=== PATIENT | female | born 1945 | race Caucasian/White ===

== ENCOUNTER → 2023-09-29 15:22 | Outpatient (REF) | payer MEDICARE, BC, SELFPAY ==
[2023-09-29 17:20] LABS: Urine Albumin Negative (Neg - Trace); Urine Bilirubin Negative (Negative); Urine Character Slightly Cloudy (Clear); Urine Color Straw; Urine Glucose Negative (Negative); Urine Ketone Negative (Negative); Urine Leukocyte 2+ (Negative); Urine Nitrite Negative (Negative); Urine Occult Blood Negative (Negative); Urine Specific Gravity 1.005 (<1.030); Urine Urobilinogen Negative (Neg - 1+)
[2023-09-29 17:28] LABS: Urine Red Blood Cell 0-2 /HPF (0-2); Urine Squamous Cell 0-2 /LPF (Few)
[2023-09-29 17:29] LABS: Urine Bacteria Moderate (Negative); Urine White Cell 50-60 /HPF (0-5)
== END ==
LOC: OLABLV 15:22
PROVIDERS: ATTENDING PHYSICIAN Nurse Practitioner Family
DX: N39.0 Urinary tract infection, site not specified (principal)
CPT/HCPCS: 81003; 81015; 87086; 87088; 87186

== ENCOUNTER → 2023-11-22 10:15 | Outpatient (REF) | payer MEDICARE, BC, SELFPAY ==
[2023-11-22 11:14] LABS: % Basophils 0.5 % (0-2); % Eosinophils 5.4 % (0-6); % Immature Granulocytes 0.7 % (0-0.5); % Lymphocytes 23.5 % (20.5-51.1); % Neutrophils 61.9 % (42.2-75.2); Absolute Eosinophils 0.5 10^3/uL (0-0.7); Absolute Immature Granulocytes 0.1 10^3/uL (0-0.05); Absolute Monocytes 0.7 10^3/uL (0.1-0.6); Absolute Neutrophils 5.3 10^3/uL (1.4-6.5); Hematocrit 36.1 % (37.0-47.0); Hemoglobin 11.7 g/dL (12.0-16.0); Mean Corp Hgb Conc. 32.4 g/dL (33.0-37.0); Mean Corpuscular Volume 92.6 fL (81.0-99.0); Mean Platelet Volume 10.5 fL (7.4-10.4); Nucleated Red Blood Cells % 0 %; Platelet Count 240 10^3/uL (130-400); Red Cell Dist. Width 13.5 % (11.5-14.5); White Blood Cell Count 8.5 10^3/uL (4.8-10.8)
[2023-11-22 11:27] LABS: ALT (SGPT) 12 U/L (0-35); AST (SGOT) 17 U/L (14-36); Albumin 3.8 g/dl (3.5-5.0); Alkaline Phosphatase 76 U/L (38-126); Blood Urea Nitrogen 21 mg/dl (7-17); Calcium 9.3 mg/dl (8.4-10.2); Carbon Dioxide 25 mmol/L (22-30); Chloride 102 mmol/L (98-107); Glucose 104 mg/dl (70-99); HDL Cholesterol 56 mg/dl; Iron 71 ug/dl (37-170); LDL Cholesterol, Calculated 44 mg/dl; Potassium 3.9 mmol/L (3.5-5.1); Sodium 137 mmol/L (135-145); Total Bilirubin 0.5 mg/dl (0.2-1.3); Total Cholesterol 115 mg/dl (50-199); Total Protein 6.7 g/dl (6.3-8.2); Triglyceride 75 mg/dl (10-149); Very Low Density Lipoprotein 15 mg/dl (0-30); eGFR > 60.00
[2023-11-22 11:36] LABS: Percent Saturation 25 % (20-50); Total Iron Binding Capacity 279 ug/dl (265-497)
[2023-11-22 11:57] LABS: TSH Reflex To Free T4 1.98 uIU/ml (0.47-4.68)
[2023-11-22 12:12] LABS: Glycohemoglobin (HgbA1c) 6.4 % (4.0-5.6)
== END ==
LOC: OLABLV 10:15
PROVIDERS: ATTENDING PHYSICIAN Nurse Practitioner Family
DX: I50.32 Chronic diastolic (congestive) heart failure (principal); F03.90 Unspecified dementia, unspecified severity, without behavioral disturbance, psychotic disturbance, mood disturbance, and anxiety; E11.65 Type 2 diabetes mellitus with hyperglycemia; I10 Essential (primary) hypertension; E78.2 Mixed hyperlipidemia; I25.10 Atherosclerotic heart disease of native coronary artery without angina pectoris; I48.21 Permanent atrial fibrillation; I49.5 Sick sinus syndrome; Z95.0 Presence of cardiac pacemaker; K21.9 Gastro-esophageal reflux disease without esophagitis; Z13.89 Encounter for screening for other disorder
CPT/HCPCS: 36415; 80053; 80061; 82728; 83036; 83540; 83550; 84443; 85025

== ENCOUNTER → 2023-12-14 19:45 | Outpatient (REF) | payer MEDICARE, BC, SELFPAY ==
[2023-12-15 13:45] LABS: Urine Albumin Negative (Neg - Trace); Urine Bilirubin Negative (Negative); Urine Character Very Cloudy (Clear); Urine Color Yellow; Urine Glucose Negative (Negative); Urine Ketone Negative (Negative); Urine Leukocyte 2+ (Negative); Urine Nitrite Positive (Negative); Urine Occult Blood Negative (Negative); Urine Urobilinogen Negative (Neg - 1+)
[2023-12-15 13:55] LABS: Urine Bacteria Moderate (Negative); Urine Calcium Oxalate Crystals Present; Urine White Cell >100 /HPF (0-5)
[2023-12-15 13:56] LABS: Urine Red Blood Cell None Seen /HPF (0-2)
== END ==
LOC: OLABLV 19:45
PROVIDERS: ATTENDING PHYSICIAN Nurse Practitioner Family
DX: N39.0 Urinary tract infection, site not specified (principal)
CPT/HCPCS: 81003; 81015; 87086

== ENCOUNTER → 2024-02-07 11:32 | Outpatient (REF) | payer MEDICARE, BC, SELFPAY ==
[2024-02-07 13:23] LABS: Hematocrit 35.5 % (37.0-47.0); Hemoglobin 11.4 g/dL (12.0-16.0); Mean Corp Hgb Conc. 32.1 g/dL (33.0-37.0); Mean Corpuscular Hgb 28.9 pg (27.0-31.0); Mean Corpuscular Volume 89.9 fL (81.0-99.0); Mean Platelet Volume 10.7 fL (7.4-10.4); Platelet Count 280 10^3/uL (130-400); Red Blood Cell Count 3.95 10^6/uL (4.20-5.40); Red Cell Dist. Width 14.2 % (11.5-14.5); White Blood Cell Count 9.5 10^3/uL (4.8-10.8)
[2024-02-07 13:49] LABS: ALT (SGPT) 12 U/L (0-35); AST (SGOT) 17 U/L (14-36); Albumin 4.1 g/dl (3.5-5.0); Alkaline Phosphatase 91 U/L (38-126); Blood Urea Nitrogen 19 mg/dl (7-17); Calcium 9.2 mg/dl (8.4-10.2); Carbon Dioxide 23 mmol/L (22-30); Chloride 103 mmol/L (98-107); Glucose 129 mg/dl (70-99); Potassium 4.1 mmol/L (3.5-5.1); Sodium 138 mmol/L (135-145); Total Bilirubin 0.7 mg/dl (0.2-1.3); Total Protein 7.1 g/dl (6.3-8.2); eGFR > 60.00
[2024-02-07 13:57] LABS: NT-proBNP 3280 pg/ml
== END ==
LOC: OLABLV 11:32
PROVIDERS: ATTENDING PHYSICIAN Nurse Practitioner; OTHER PHYSICIAN Nurse Practitioner Family
DX: R60.0 Localized edema (principal); I48.21 Permanent atrial fibrillation; I34.0 Nonrheumatic mitral (valve) insufficiency; I50.32 Chronic diastolic (congestive) heart failure
CPT/HCPCS: 36415; 80053; 83880; 85027

== ENCOUNTER → 2024-02-26 12:56 | Outpatient (REF) | payer MEDICARE, BC, SELFPAY | LOC: HWRCS 12:56 | PROVIDERS: ATTENDING PHYSICIAN Nurse Practitioner; FAMILY PHYSICIAN Family Medicine | DX: R60.0 Localized edema (principal); I48.21 Permanent atrial fibrillation; I34.0 Nonrheumatic mitral (valve) insufficiency; I50.32 Chronic diastolic (congestive) heart failure | CPT/HCPCS: 93306 ==

== ENCOUNTER 2024-06-02 22:19 | Inpatient (IN) | payer MEDICARE, BC, SELFPAY ==
[2024-06-02 18:10] VITALS: BP 208/113
[2024-06-02 18:11] VITALS: BP 208/113
[2024-06-02 18:17] VITALS: BP 181/107; BMI 29.0
--- NOTE | 2024-06-02 18:38 | ED.GENMED ---
History of Present Illness
General
Chief Complaint: Fall
Source: patient and other (Nursing)
Exam Limitations: dementia (Slight. Able to answer some questions)
Time Seen by Provider: 06/02/24 18:02
History of Present Illness
History of Present Illness:
This is a 79 year old female that comes in with c/o fall. States that she was walking down the [place] and tripped. Told that she was using her walker and that this was a witnessed fall. Staes that she did not hit her head or have any LOC. States that
she has left hip thigh pain.States that she is nauseated, has a headache and dizziness. Denies any fever, chills, chest pain, SOB, abd pain, vomiting, diarrhea, urinary burning.
Past History
Past History
ED Past Medical History: Arrthythmia ( SVT, Atrial fib, ), CVA, GERD, HTN, Hypercholesterolemia, NIDDM, Psychiatric (Depression, anxiety) and Other ( Lyme's disease, insomnia, Colitis, Vertigo, Intractable vomiting, Headache, Sleep apnea, UTI, Iron
deficiency anemia, Slight Dementia, Endometriosis, )
ED Past Surgical History: Appendectomy, Cardiac (Pacemaker, Left carotid endarterectomy), Gynecological (Hysterectomy) and Tonsilectomy
Social History
Tobacco: Former smoker
Alcohol: None
Personal: ( in [employer])
Living: assisted ([facility])
Family History
Family History: CAD
Review of Systems
Review of Systems
All Other Systems: ROS reviewed and negative except as documented in HPI and ROS
Constitutional: Reports no symptoms; Denies fever or chills
EENT: Reports no symptoms
Respiratory: Reports no symptoms; Denies cough or trouble breathing
Cardiac: Reports no symptoms; Denies chest pain
ABD/GI: Reports nausea; Denies abdominal pain, vomiting or diarrhea
: Reports no symptoms; Denies dysuria, frequency or urgency
Musculoskeletal: Reports joint pain (Left hip)
Skin: Reports no symptoms
Neurological: Reports dizzy and headache
Psychiatric: Reports no symptoms
Phy Exam
General Physical Exam
General Presentation: no apparent distress
General age: appears stated age
General Skin: warm and dry
General Habitus: elderly
General Mental: usual mental status
General Hydration: dry mucous membranes
ENT Exam
ENT Exam: TM's normal, pharynx normal and neck supple
Eye Exam
Eye Exam: EOMI
Cardiovascular Exam
Cardiovascular Exam: normal peripheral pulses, irregularly irregular and pacemaker (Occasional spikes noted)
Pulmonary Exam
Pulmonary Exam: lungs clear, no respiratory distress, no rales, chest non tender, no crackles, no rhonchi, no wheezing and no cough
Gastrointestinal Exam
Gastrointestinal Exam: normal bowel sounds, non tender, soft, no organomegaly, no pulsatile mass and non distended
Musculoskeletal Exam
Musculoskeletal Exam: edema (Bilateral lower legs +2 pitting) and other (Negative knee discomfort with palpation, Negative for discomfort with right knee flexion, Discomfort with left knee flexion in the left hip area. Left hip discomfort with
palpation)
Skin Exam
Skin Exam: normal color, warm/dry, no rash and no petechia
Psychiatric Exam
Psychiatric Exam: normal mood/affect
Course
Orders/Labs/Results
Orders:
Orders
06/02/24 18:37
Hip, Left 2-3 Views [CR Hip - LT w/wo Pel 2-3 Vw*] Urgent
Comment:
Reason For Exam: Fall, pain
Include a pelvis x-ray?: Yes
06/02/24 18:38
Morphine Sulfate 2 mg IV NOW STA
06/02/24 18:40
CT Head W/o Iv Contrast Urgent
Comment:
Reason For Exam: Fall on eliquis
Urinalysis Reflex To Culture Urgent
06/02/24 18:43
Complete Blood Count/With Diff Urgent
Comprehensive Metabolic Panel Urgent
06/02/24 18:47
Electrocardiogram (*1) Urgent
Reason for Study: Vertigo / Dizzy
EKG- Treatment ONCE
Abnormal Lab Results
06/02/24
18:43
RBC 4.15 L 10^6/uL
(4.20-5.40)
Hct 36.1 L %
(37.0-47.0)
Abs Immat Gran (auto) 0.1 H 10^3/uL
(0-0.05)
Immature Gran % 1.7 H %
(0-0.5)
BUN 25 H mg/dl
(7-17)
Creatinine 1.1 H mg/dL
(0.6-1.0)
Glucose 159 H mg/dl
(70-99)
06/02/24 18:43
06/02/24 18:43
Dehydration. hyperglycemia.
Vital Signs
Initial and Last Documented VS:
Initial Vital Signs
BP
208/113
06/02/24 18:10
Last Documented Vital Signs
Temp Pulse Resp BP Pulse Ox
98.7 F 92 21 208/113 97
06/02/24 18:11 06/02/24 18:15 06/02/24 18:15 06/02/24 18:11 06/02/24 18:15
MDM/Problems Addressed
Differential Diagnosis Includes:
Left hip/Pelvic fracture, Contusion
MDM/Problems Addressed:
This is a 79 year old female that comes in with c/o fall. States that she went down hard after she tripped. States that she has left hip pain.
Will get labs and X-ray. will medicate for pain.
back into see patient. Explained that she has a fracture of the left hip. Will admit patient. Attempted to call patient Daughter and left a message for her to call the ER.
Chronic conditions affecting care:
Dementia
Chronic conditions affecting care: DM and Arrhythmia (Atrial fib)
Acute Exacerbation and/or Progression of Chronic Illness:
NA
*Radiology
Radiology exam reviewed: preliminary read by ED provider (Left hip- Left hip fracture) and radiology read reviewed (CT head-No acute intracranial abnormality noted. Stable chronic findings as detailed above. Left hip-minimal displaced left
intertrochanteric femoral fracture. )
*Pulse Oximetry
Patient hypoxic: no
*EKG
Interpreted by ED Provider?: Yes
Heart Rate: 97
Rate: normal
Rhythm: a-fib
[place]: normal axis
QRS Pattern: normal QRS
Ischemia: no ischemia
*[employer] Interpretation
Rate: tachycardiac
Heart Rate: 100
Rhythm: a-fib (with occasional paced beats)
*Critical Care Note
Total Time (30-74mins, 75-104mins- exclusive of procedures): Not Applicable
ED Attending Note
-
Portions of this chart may have been created with voice recognition software.� Occasional wrong word or��sound alike� substitutions may have occurred due to the inherent limitations of voice recognition software.
Discharge Plan
Departure
Patient Disposition: Admit
Date of Disposition: 06/02/24
Time of Disposition: 20:28
Admit to: Med/Surg
Presentation/result/management discussed w/ accepting MD/DO: Hospitalist
Patient with high blood pressure during this ER visit?: Yes
Condition: Good
Covid-19: Not Applicable
Discharge Problem:
Closed intertrochanteric fracture of left femur
Prescriptions:
No Action
atorvastatin 20 MG tablet
20 mg PO HS
pantoprazole 40 MG tablet,delayed release (DR/EC)
40 mg PO DAILY
Januvia 100 MG tablet
100 mg PO DAILY
methenamine hippurate 1 GRAM tablet
1 g PO BID
ferrous sulfate [iron] 325 MG tablet
325 mg PO DAILY
lisinopril 10 MG tablet
10 mg PO BID
acetaminophen [Tylenol] 325 MG capsule
650 mg PO Q4H PRN (Reason: mild pain)
metoprolol succinate 100 mg tablet extended release 24 hr
100 mg PO HS
metformin 1,000 mg Tablet
1,000 mg PO BID
calcium polycarbophil [Fiber (calcium polycarbophil)] 625 mg Tablet
625 mg PO DAILY
alum-mag hydroxide-simeth 200-200-20 mg/5 mL Suspension
30 ml PO BID PRN (Reason: heartburn)
memantine 10 mg Tablet
10 mg PO BID
Eliquis 5 MG tablet
5 mg PO BID
Rx Instructions:
Resume on Apr 12
diltiazem HCl 300 mg Capsule,Extended Release 24hr
300 mg PO DAILY 30 Days Qty: 30 0RF
furosemide 20 mg Tablet
20 mg PO DAILY Qty: 30 0RF
nystatin 100,000 unit/gram powder
1 applic TOPICAL BID
Referrals:
Vivian Martinez CRNP [Family Provider] -
Interventions
Interventions:
*Risk Screen - Suicide Last Done: 06/02/24 18:14
*General Assessment Last Done: 06/02/24 18:13
*Neglect/Abuse Screening Last Done: 06/02/24 18:14
*ED COVID-19 Vaccine History Last Done: 06/02/24 18:13
ED-Musculoskeletal Assessment Last Done: 06/02/24 18:15
ED- Neurological Assessment Last Done: 06/02/24 18:14
ED-Skin Assessment Last Done: 06/02/24 18:16
Discharge Date and Time
Print Language: TRISTANIAN
[2024-06-02 18:49] LABS: % Basophils 0.2 % (0-2); % Eosinophils 3.2 % (0-6); % Immature Granulocytes 1.7 % (0-0.5); % Lymphocytes 26.6 % (20.5-51.1); % Monocytes 7.6 % (1.7-9.3); % Neutrophils 60.7 % (42.2-75.2); Absolute Eosinophils 0.3 10^3/uL (0-0.7); Absolute Immature Granulocytes 0.1 10^3/uL (0-0.05); Absolute Lymphocytes 2.2 10^3/uL (1.2-3.4); Absolute Monocytes 0.6 10^3/uL (0.1-0.6); Absolute Neutrophils 5.1 10^3/uL (1.4-6.5); Hematocrit 36.1 % (37.0-47.0); Mean Corp Hgb Conc. 33.2 g/dL (33.0-37.0); Mean Corpuscular Hgb 28.9 pg (27.0-31.0); Mean Platelet Volume 10.4 fL (7.4-10.4); Nucleated Red Blood Cells % 0 %; Platelet Count 247 10^3/uL (130-400); Red Blood Cell Count 4.15 10^6/uL (4.20-5.40); Red Cell Dist. Width 13.9 % (11.5-14.5); White Blood Cell Count 8.4 10^3/uL (4.8-10.8)
[2024-06-02 19:04] LABS: ALT (SGPT) 20 U/L (0-35); AST (SGOT) 21 U/L (14-36); Albumin 4.5 g/dl (3.5-5.0); Alkaline Phosphatase 89 U/L (38-126); Blood Urea Nitrogen 25 mg/dl (7-17); Calcium 9.2 mg/dl (8.4-10.2); Carbon Dioxide 26 mmol/L (22-30); Chloride 98 mmol/L (98-107); Estimated Creatinine Clearance 41 ml/min; Glucose 159 mg/dl (70-99); Potassium 4.4 mmol/L (3.5-5.1); Sodium 139 mmol/L (135-145); Total Bilirubin 0.5 mg/dl (0.2-1.3); Total Protein 7.5 g/dl (6.3-8.2)
[2024-06-02] MEDS: MORPHINE SULFATE 2 MG IV (19:06)
[2024-06-02 20:00] VITALS: BP 168/98
[2024-06-02] MEDS: MORPHINE SULFATE 4 MG IV (20:31)
[2024-06-02 20:54] LABS: Urine Albumin Negative (Neg - Trace); Urine Bilirubin Negative (Negative); Urine Character Clear (Clear); Urine Color Straw; Urine Glucose Negative (Negative); Urine Ketone Negative (Negative); Urine Leukocyte Trace (Negative); Urine Nitrite Negative (Negative); Urine Occult Blood Negative (Negative); Urine Urobilinogen Negative (Neg - 1+); Urine pH 6.5 (5.0-9.0)
[2024-06-02 21:02] LABS: Urine Bacteria Moderate (Negative); Urine Red Blood Cell None Seen /HPF (0-2)
[2024-06-02 21:03] LABS: Urine Amorphous Seen
--- NOTE | 2024-06-02 21:03 | HPS.HSE ---
Family Physician
-
Family Physician: CEE Singer
Chief Complaint
-
Mechanical fall, left hip pain
History of Present Illness
The patient is an 79 year old woman with PMH significant for mild dementia (moved to assisted living due to difficulty remembering medications), former smoker, SVT, atrial fibrillation on Eliquis (last dose this morning at 848am), CVA, GERD, HTN,
HLD, NIDDM, depression, anxiety, Lyme's disease, insomnia, colitis, vertigo, sleep apnea, iron deficiency anemia, who presents to ED from assisted living at [facility]) due to witnessed fall while walking down the hallway using her walker
and tripped. No LOC, did not hit her head, and is complaining of left hip pain, nausea, headache, and dizziness. No CP, no SOB, no LOC, no vomiting, no dysuria.
Hip X-ray shows an intertrochanteric left hip fracture minimally displaced.
Ortho consulted from ED
ED txt: IV Morphine x 2
Labs: Creat 1.1, BUN 25, Hgb 12.0
Medical History
Past Medical History
Past Medical History: Reports Arrhythmia (A.fib on Eliquis, SVT, SSS), GERD, HTN, Hypercholesterolemia, NIDDM, Psychiatric (Depression/anxiety) and Other (Lyme's disease, insomnia, Colitis, Vertigo, Intractable vomiting, Headache, Sleep apnea, UTI,
Iron deficiency anemia, Slight Dementia, Endometriosis)
Past Surgical History: Reports Appendectomy, Cardiac (Pacemaker, left carotid endarterectomy), Gynocological and Tonsilectomy
Social History
Tobacco: Former Smoker
Alcohol: None
Drug: None
Living: [facility]
Family History
Family History: Not pertinent
Allergies / Home Medications
Allergies reflects when Allergies were last updated in [employer].
Home Medications with original date entered in [employer]
Allergy/Medication List:
Allergies
Allergy/AdvReac Type Severity Reaction Status Date / Time
amoxicillin Allergy Unknown Unknown Verified 06/02/24 18:11
amoxicillin trihydrate Allergy Rash/Swollen Verified 06/02/24 18:11
[From Augmentin] lips
potassium clavulanate Allergy Rash/swollen Verified 06/02/24 18:11
[From Augmentin] lips
Home Medications
atorvastatin 20 mg tablet 20 mg PO HS High cholesterol 07/29/15
acetaminophen 325 mg capsule (Tylenol) 650 mg PO Q4H PRN mild pain 01/11/21
ferrous sulfate 325 mg (65 mg iron) tablet (iron) 325 mg PO DAILY Supplement 01/11/21
lisinopril 10 mg tablet 10 mg PO BID Blood pressure 01/11/21
methenamine hippurate 1 gram tablet 1 g PO BID Urinary issue 01/11/21
pantoprazole 40 mg tablet,delayed release 40 mg PO DAILY Gastrointestinal issue 01/11/21
sitagliptin phosphate 100 mg tablet (Januvia) 100 mg PO DAILY Diabetes 01/11/21
aluminum-mag hydroxide-simethicone 200 mg-200 mg-20 mg/5 mL oral susp 30 ml PO BID PRN heartburn 10/08/22
apixaban 5 mg tablet (Eliquis) 5 mg PO BID Blood clot prevention/tx 10/08/22
calcium polycarbophil 625 mg tablet (Fiber (calcium polycarbophil)) 625 mg PO DAILY Gastrointestinal issue 10/08/22
memantine 10 mg tablet 10 mg PO BID Mental Health/Anxiety 10/08/22
metformin 1,000 mg tablet 1,000 mg PO BID Diabetes 10/08/22
metoprolol succinate 100 mg tablet,extended release 24 hr 100 mg PO HS Blood clot prevention/tx 10/08/22
diltiazem HCl 300 mg capsule,extended release 24 hr 300 mg PO DAILY 30 days #30 caps 10/11/22
furosemide 20 mg tablet 20 mg PO DAILY #30 tabs 12/13/22
nystatin 100,000 unit/gram topical powder 1 applic topical BID 06/19/23
Review of Systems
-
A 12 point ROS was completed and negative except as noted: Yes
Physical Exam
Vital Signs
Vital Signs
Temp Pulse Resp BP Pulse Ox
98.7 F 109 22 168/98 94
06/02/24 18:11 06/02/24 20:15 06/02/24 20:15 06/02/24 20:00 06/02/24 20:15
Physical Exam
General: Well Developed, Well Nourished, No Apparent Distress, Comfortable and Conversant
HEENT: NormoCephalic, Anicteric and Moist mucous membranes
Respiratory: Clear
Cardiac: S1/S2 and Irregular Rhythm
GI: Soft, Non Tender, Non Distended and Normal Bowel Sounds
Musculoskeletal: No Clubbing, No Cyanosis, Edema, Left Lower Extremity, Edema, Right Lower Extremity and Other (externally rotated and shortened LLE)
Skin: Warm and Dry
Neuro: Awake, Alert and Oriented (To person, year, not to place)
Psych: Calm
Laboratory Results
-
06/02/24 18:43
06/02/24 18:43
Laboratory Results
Total Bilirubin 0.5 mg/dl (0.2-1.3) 06/02/24 18:43
AST 21 U/L (14-36) 06/02/24 18:43
ALT 20 U/L (0-35) 06/02/24 18:43
Alkaline Phosphatase 89 U/L (38-126) 06/02/24 18:43
Data Reviewed
-
Medical Tests (Nuc Med, Echo, EKG etc): Report Reviewed by me (EF 65-70%, mild concentric left ventricular hypertrophy)
Lab Data: Labs Reviewed by me
Impression/Plan
-
IMPRESSION:
The patient is an 79 year old woman with PMH significant for mild dementia (moved to assisted living due to difficulty remembering medications), former smoker, SVT, atrial fibrillation on Eliquis (last dose this morning at 848am), CVA, GERD, HTN,
HLD, NIDDM, depression, anxiety, Lyme's disease, insomnia, colitis, vertigo, sleep apnea, iron deficiency anemia, who presents to ED from assisted living at [facility] due to witnessed fall while walking down the hallway using her walker
and tripped. No LOC, did not hit her head, and is complaining of left hip pain, nausea, headache, and dizziness. No CP, no SOB, no LOC, no vomiting, no dysuria.
Hip X-ray shows an intertrochanteric left hip fracture minimally displaced.
Ortho consulted from ED
ED txt: IV Morphine x 2
Labs: Creat 1.1, BUN 25, Hgb 12.0
creatinine 1.1 (from 0.8)
#Minimally displaced left intertrochanteric femoral fracture
-Ortho cx appreciated, surgery discussed for Monday due to need for Eliquis wash-out, plan likely gamma nail
-NPO p mn Monday
-pain management, neurovascular checks q4h, bowel regimen, bladder scan prn
#OCTAVIO, creat 1.1 up from 0.8, likely mild dehydration
-gentle IVF tonight, repeat labs in am, hold home Lasix for now
#A.fib on Eliquis, last dose this morning
-hold Eliquis, monitor on tele, continue BB
#HTN, continue home meds
-Metoprolol XL BID
-Lisinopril BID
#Peripheral edema
-hold daily oral Lasix for now s/p IVF, and may restart pending clinical status
#Mild Dementia
-continue Memantine
#PVD, carotid artery disease
- Left carotid endarterectomy
#NIDDM
-Cont Januvia, Glimepiride (cont for now, hold while NPO)
-SSI
-Diabetic diet, NPO p midnight Monday
#HLD
-cont statin
DVT proph- PCDs for now, hold Eliquis for surgery
Full Code as discussed with patient's daughter Renetta
Patient's other daughter, Twyla Fox, is out of the country (she works here as a nurse in the cancer center).
--- NOTE | 2024-06-02 23:00 | PTCARENOTE ---
Pt arrived via stretcher from ED at 2300. Pt was assist X3 assembler for puller over machine. Pt AAOX1. Pt BP elevated. (see MAR). Other VSS. head to toe assessment complete. oriented pt to room and call ware. bed in lowest position and locked. bed alarm in place.
[2024-06-02] MEDS: COLACE 100 MG PO (23:32)
[2024-06-02] MEDS: LIPITOR 20 MG PO (23:33)
[2024-06-02] MEDS: SENOKOT PO (23:33)
[2024-06-02] MEDS: ZESTRIL 10 MG PO (23:33)
[2024-06-02] MEDS: TOPROL XL 100 MG PO (23:33)
[2024-06-02] MEDS: NAMENDA 10 MG PO (23:33)
[2024-06-02 23:40] VITALS: BP 201/114; BMI 27.7
[2024-06-02 23:46] VITALS: BMI 27.7
[2024-06-03] VITALS (7 sets, daily range): BP systolic 110–141; BP diastolic 53–82
[2024-06-03] MEDS: TYLENOL 650 MG PO ×3 (00:28→21:16)
[2024-06-03 00:35] LABS: Glucose - Point of Care 273 mg/dl (70-99)
[2024-06-03] MEDS: TYLENOL PO ×3 (04:20→17:41)
[2024-06-03] MEDS: MORPHINE SULFATE 2 MG IV ×3 (05:21→22:36)
[2024-06-03] MEDS: FLOMAX 0.4 MG PO (05:43)
--- NOTE | 2024-06-03 07:29 | CON.ORTHO ---
Addendum entered and electronically signed by Carmelita Liu PA-C 06/04/24 13:42:
Performing provider Dr. Maher, not Dr. Mon
Original Note:
Consultation
-
Date/Time Consultation Requested: 06/02/24, unknown time
Date/Time Consultation Performed: 06/03/24 @7:15am
Requesting Provider: Jacques
Performing Provider: Carmelita Liu PA-C, Viola Mon DO
Reason for Consultation: left hip fracture
Consultation - Orthopedics
History
HPI: 79yo female admitted to [facility] following a fall. She was ambulating with a walker when she tripped and fell, landing on the left side. She reports that she was unable to get up. She reports pain in the left hip and thigh. Xrays
performed in the ED reveal a left hip fracture. Orthopedics has been consulted for further management. She is on Eliquis with her last dose being 06/02/24 at 8:48am. Currently, she is resting comfortably in bed. She does report pain with any movement
of the left leg
PAST MEDICAL HISTORY: Afib, SVT, CVA, GERD, HTN, Hypercholesterolemia, NIDDM, depression, anxiety, Lyme, insomnia, colitis, vertigo, sleep apnea, iron deficiency anemia, endometriosis, mild dementia
PAST SURGICAL HISTORY: Appendectomy, left carotid endarterectomy, hysterectomy, tonsillectomy
SOCIAL HISTORY: Lives at [facility] assisted [facility], ambulates with a walker at baseline, former smoker, denies alcohol
FAMILY HISTORY: Noncontributory
REVIEW OF SYSTEMS: 12 point review of systems obtained and negative except those mentioned in the HPI
Allergies / Home Medications
Allergy/AdvReac Type Severity Reaction Status Date / Time
amoxicillin Allergy Unknown Unknown Verified 06/02/24 18:11
amoxicillin trihydrate Allergy Rash/Swollen Verified 06/02/24 18:11
[From Augmentin] lips
potassium clavulanate Allergy Rash/swollen Verified 11/03/24 18:11
[From Augmentin] lips
�Medication �Instructions �Recorded
atorvastatin 20 mg tablet 20 mg PO HS High cholesterol 07/29/15
acetaminophen 325 mg capsule 650 mg PO Q4H PRN mild pain 01/11/21
(Tylenol)
ferrous sulfate 325 mg (65 mg 325 mg PO DAILY Supplement 01/11/21
iron) tablet (iron)
lisinopril 10 mg tablet 10 mg PO BID Blood pressure 01/11/21
methenamine hippurate 1 gram tablet 1 g PO BID Urinary issue 01/11/21
pantoprazole 40 mg tablet,delayed 40 mg PO DAILY Gastrointestinal 01/11/21
release issue
sitagliptin phosphate 100 mg 100 mg PO DAILY Diabetes 01/11/21
tablet (Januvia)
aluminum-mag hydroxide-simethicone 30 ml PO BID PRN heartburn 10/08/22
200 mg-200 mg-20 mg/5 mL oral susp
apixaban 5 mg tablet (Eliquis) 5 mg PO BID Blood clot 10/08/22
prevention/tx
calcium polycarbophil 625 mg 625 mg PO DAILY Gastrointestinal 10/08/22
tablet (Fiber (calcium issue
polycarbophil))
memantine 10 mg tablet 10 mg PO BID Mental Health/Anxiety 10/08/22
metformin 1,000 mg tablet 1,000 mg PO BID Diabetes 10/08/22
metoprolol succinate 100 mg 100 mg PO HS Blood clot 10/08/22
tablet,extended release 24 hr prevention/tx
diltiazem HCl 300 mg 300 mg PO DAILY 30 days #30 caps 10/11/22
capsule,extended release 24 hr
furosemide 20 mg tablet 20 mg PO DAILY #30 tabs 12/13/22
nystatin 100,000 unit/gram topical 1 applic topical BID 06/19/23
powder
Vital Signs / Lab Results
Temp Pulse Resp BP Pulse Ox
98.1 F 91 19 141/82 97
06/03/24 03:25 06/03/24 03:25 06/03/24 03:25 06/03/24 03:25 06/03/24 03:25
06/02/24 18:43
06/02/24 18:43
RADIOGRAPHIC FINDINGS:
Xrays left hip show a minimally displaced left intertrochanteric fracture
PHYSICAL EXAM:
General: no acute distress. able to tell me location and year
HEENT: NCAT, sclera anicteric, normal hearing
Heart: No JVD
Lungs: Normal work of breathing on room air
MSK: Directed exam of left lower extremity reveals leg shortened and externally rotated. +TTP about the lateral thigh. Compartments soft and compressible. +Logroll. Calf soft and nontender. Able to plantarflex/dorsiflex the ankle. NVI distally
Assessment / Plan
ASSESSMENT: 79yo female with left intertrochanteric hip fracture
PLAN: Unfortunately, Ms. Rubio has sustained a left hip fracture. I did discussed with daughter, Selene, via telephone. Recommend operative fixation. The risks, benefits, potential complications were reviewed. Will plan for left hip gamma nail
under the direction of Dr. Mon on 06/05/24 to allow for Eliquis washout. Surgical and blood consents obtained and placed on chart. Daughter states that patient does sign her own consents however she did seem slightly confused this
morning and therefore the daughter also provided consent for surgery. Ancef electronic resources librarian to OR. Patient will need to be NPO after midnight on Monday night. She is to remain on bedrest for now. Continue with pain medications as needed. Medical
optimization. Continue to hold Eliquis. Orthopedics will continue to follow along.
[2024-06-03] MEDS: TOPROL XL 100 MG PO ×2 (07:38→21:16)
[2024-06-03] MEDS: NAMENDA 10 MG PO ×2 (07:39→21:16)
[2024-06-03] MEDS: SENOKOT 17.2 MG PO ×2 (07:39→21:17)
[2024-06-03] MEDS: PROTONIX 40 MG PO (07:39)
[2024-06-03] MEDS: AMARYL 2 MG PO (07:39)
[2024-06-03] MEDS: ZESTRIL 10 MG PO ×2 (07:39→21:17)
[2024-06-03] MEDS: COLACE 100 MG PO ×2 (07:40→21:17)
[2024-06-03] MEDS: DESENEX/MITRAZOL/ZEASORB 1 APPLIC TOPICAL ×2 (07:49→21:17)
[2024-06-03 07:56] LABS: Glucose - Point of Care 175 mg/dl (70-99)
[2024-06-03] MEDS: NOVOLOG FLEXPEN-LOW RESISTANCE 1 UNITS SC ×2 (08:04→12:41)
[2024-06-03] MEDS: ROXICODONE 5 MG PO (10:27)
--- NOTE | 2024-06-03 11:26 | W.PN.HOSP.TC ---
Today's Communication/Plan
-
see outlined plan
await todays labs
Assessment / Plan
Assessment / Plan
Assessment:
Traumatic Minimally displaced left intertrochanteric femoral fracture
- Ortho consulted, NPO p MN for OR planned Monday after Eliquis Washout
- continue pain control
- EKG with rate controlled A. Fib
- recent Echo 02/20: normal ventricular size/function with normal EF, mild LVH.
- intermediate to higher risk for intermediate risk procedure. No active cardio-pulmonary complaints. Continue juan-operatively tele monitoring and BB. NSQIP cardiac complication 4.1%, any complication 17%
OCTAVIO
- continue IVF (gentle)
- hold PO Lasix
- follow BMP
Parox A. fib
- continue BB
- holding Eliquis
Essential HTN
- continue home BP meds
Peripheral edema
- hold daily oral Lasix for now s/p IVF, and may restart pending clinical status
Mild Dementia
- continue Memantine
PVD, carotid artery disease
hx of Left carotid endarterectomy
NIDDM
- cont Januvia, Glimepiride (cont for now, hold while NPO)
- SSI
- Diabetic diet, NPO p midnight Monday
- most recent A1c is October was 6.4
HLD
- cont statin
DVT ppx: SCDs
Code: Full
Anticipated Discharge: > 48 hours
Subjective/Interval History
-
Date of Service: June 03, 2024
reports L hip pain, no other complaints
Objective Data
-
Vital Signs:
Vital Signs
Temp Pulse Resp BP Pulse Ox
98.0 F 88 16 139/58 96
06/03/24 07:35 06/03/24 07:35 06/03/24 07:35 06/03/24 07:35 06/03/24 07:35
I&O
06/02/24 06/03/24 06/04/24
06:59 06:59 06:59
Intake Total 320 / 320
Output Total 500 / 500
Balance -180 / -180
Physical Exam
-
General: No Apparent Distress
HEENT: Normocephalic and Atraumatic
Respiratory: Negative Wheezes
Cardiac: Regular Rhythm and S1/S2
GI: Soft
Genito-urinary: No Costovertebral Tender
Musculoskeletal: Other (leg shortened and externally rotated. +TTP about the lateral thigh)
Neuro: AO x 3
Psych: Calm
Data Reviewed
-
Total Time Spent with Patient (in minutes): 42
Diagnostic Radiology: Report Reviewed by me
CT Scan: Report Reviewed by me
Labs: Labs Reviewed by me
[2024-06-03 12:15] LABS: Hematocrit 30.6 % (37.0-47.0); Hemoglobin 10.6 g/dL (12.0-16.0); Mean Corp Hgb Conc. 34.6 g/dL (33.0-37.0); Mean Corpuscular Hgb 29.7 pg (27.0-31.0); Mean Corpuscular Volume 85.7 fL (81.0-99.0); Mean Platelet Volume 10.2 fL (7.4-10.4); Platelet Count 185 10^3/uL (130-400); Red Blood Cell Count 3.57 10^6/uL (4.20-5.40); Red Cell Dist. Width 13.9 % (11.5-14.5); White Blood Cell Count 10.3 10^3/uL (4.8-10.8)
[2024-06-03 12:32] LABS: Glucose - Point of Care 174 mg/dl (70-99)
[2024-06-03 12:47] LABS: Blood Urea Nitrogen 23 mg/dl (7-17); Calcium 8.7 mg/dl (8.4-10.2); Carbon Dioxide 26 mmol/L (22-30); Chloride 100 mmol/L (98-107); Estimated Creatinine Clearance 49 ml/min; Glucose 164 mg/dl (70-99); Potassium 3.8 mmol/L (3.5-5.1); Sodium 138 mmol/L (135-145); eGFR > 60.00
[2024-06-03] MEDS: JANUVIA 100 MG PO (14:52)
--- NOTE | 2024-06-03 16:15 | CM ---
Dx- left intertrochanteric femoral fracture
Pt with h/o dementia - spoke with daughter Renetta to complete IA
Pt resides at [facility]
At baseline needs assist with ADL's, can feed self, ambulates with rolling walker or wheel chair
SNF - [facility] in past
[facility] - in past - unsure of agency
PCP - Mariel Martinez
Pharm - [facility]
Surgery planned for Monday
Discussed SNF - prefers [facility] rehab
Plan - anticipate snf when medically ready
[2024-06-03] MEDS: COMPAZINE 5 MG IV (16:52)
[2024-06-03 17:26] LABS: Glucose - Point of Care 213 mg/dl (70-99)
[2024-06-03] MEDS: NOVOLOG FLEXPEN-LOW RESISTANCE 2 UNITS SC (17:42)
[2024-06-03] MEDS: LIPITOR 20 MG PO (21:16)
[2024-06-03 22:14] LABS: Glucose - Point of Care 206 mg/dl (70-99)
[2024-06-04] VITALS (8 sets, daily range): BP systolic 136–180; BP diastolic 56–100
[2024-06-04] MEDS: TYLENOL PO (01:28)
[2024-06-04] MEDS: TYLENOL 650 MG PO ×6 (03:29→23:13)
--- NOTE | 2024-06-04 07:47 | W.PN.UPDATE ---
Update Note
Progress Note Update
Patient resting comfortably in bed this morning. Plan for left hip gamma nail under the direction of Dr. Maher Monday06/05/2024 to allow for Eliquis washout. Consent updated and placed on chart. NPO pMN 06/04/2024. Hemoglobin this AM
pending. Orthopedic surgery will continue to follow along.
[2024-06-04 07:52] LABS: Hematocrit 31.9 % (37.0-47.0); Hemoglobin 10.8 g/dL (12.0-16.0); Mean Corp Hgb Conc. 33.9 g/dL (33.0-37.0); Mean Corpuscular Hgb 30.3 pg (27.0-31.0); Mean Corpuscular Volume 89.4 fL (81.0-99.0); Platelet Count 176 10^3/uL (130-400); Red Blood Cell Count 3.57 10^6/uL (4.20-5.40); Red Cell Dist. Width 13.8 % (11.5-14.5); White Blood Cell Count 9.3 10^3/uL (4.8-10.8)
[2024-06-04 08:09] LABS: Glucose - Point of Care 162 mg/dl (70-99)
[2024-06-04 08:43] LABS: Blood Urea Nitrogen 26 mg/dl (7-17); Calcium 8.6 mg/dl (8.4-10.2); Carbon Dioxide 23 mmol/L (22-30); Chloride 101 mmol/L (98-107); Estimated Creatinine Clearance 49 ml/min; Glucose 139 mg/dl (70-99); Potassium 3.5 mmol/L (3.5-5.1); Sodium 139 mmol/L (135-145); eGFR > 60.00
[2024-06-04] MEDS: NOVOLOG FLEXPEN-LOW RESISTANCE 1 UNITS SC (08:43)
[2024-06-04] MEDS: COLACE 100 MG PO ×2 (08:44→19:31)
[2024-06-04] MEDS: SENOKOT 17.2 MG PO ×2 (08:44→19:31)
[2024-06-04] MEDS: AMARYL 2 MG PO (08:44)
[2024-06-04] MEDS: JANUVIA 100 MG PO (08:44)
[2024-06-04] MEDS: NAMENDA 10 MG PO ×2 (08:44→19:31)
[2024-06-04] MEDS: PROTONIX 40 MG PO (08:44)
[2024-06-04] MEDS: DESENEX/MITRAZOL/ZEASORB 1 APPLIC TOPICAL ×2 (08:45→19:31)
[2024-06-04] MEDS: MORPHINE SULFATE 2 MG IV ×2 (08:48→14:00)
[2024-06-04] MEDS: ZESTRIL 10 MG PO ×2 (08:53→19:30)
--- NOTE | 2024-06-04 10:45 | CM ---
Case management following for discharge planning
Chart reviewed
Surgery planned for tomorrow for repair of hip fx
Spoke with Nlela at [facility] - given update
Corrected PCP - Dr Barkley - Pharm - [facility]
Referral/updates sent to [facility]
Pending PT/OT post op evals
Plan - anticipate SNF when medically ready
[2024-06-04 12:01] LABS: Glucose - Point of Care 310 mg/dl (70-99)
[2024-06-04] MEDS: NOVOLOG FLEXPEN-LOW RESISTANCE 4 UNITS SC (12:25)
[2024-06-04] MEDS: ROXICODONE 5 MG PO ×2 (12:30→19:36)
--- NOTE | 2024-06-04 15:50 | W.PN.HOSP.TC ---
Today's Communication/Plan
-
OR tomorrow
Kingston for retention
Assessment / Plan
Assessment / Plan
Assessment:
Traumatic Minimally displaced left intertrochanteric femoral fracture
- Ortho consulted, NPO p MN for OR planned Monday after Eliquis Washout
- continue pain control
- EKG with rate controlled A. Fib
- recent Echo 02/20: normal ventricular size/function with normal EF, mild LVH.
- intermediate to higher risk for intermediate risk procedure. No active cardio-pulmonary complaints. Continue juan-operatively tele monitoring and BB. NSQIP cardiac complication 4.1%, any complication 17%
OCTAVIO
- hold PO Lasix until post-op
- follow BMP
Acute urinary retention
- Kingston placed
Parox A. fib
- continue BB
- holding Eliquis for OR
Essential HTN
- continue home BP meds
Peripheral edema by history
- hold PO Lasix until post-op
Mild Dementia
- continue Memantine
PVD, carotid artery disease
hx of Left carotid endarterectomy
NIDDM
- cont Januvia, Glimepiride (cont for now, hold while NPO)
- SSI
- Diabetic diet, NPO p midnight Monday
- most recent A1c is October was 6.4
HLD
- cont statin
DVT ppx: SCDs
Code: Full
Anticipated Discharge: > 48 hours
Subjective/Interval History
-
Date of Service: June 04, 2024
no complaints presently
had urinary retention earlier requiring Kingston
Objective Data
-
Labs:
Laboratory Results
06/04/24
04:47
WBC 9.3
Hgb 10.8 L
Hct 31.9 L
Plt Count 176
Sodium 139
Potassium 3.5
Chloride 101
Carbon Dioxide 23
BUN 26 H
Creatinine 0.9
Glucose 139 H
Calcium 8.6
Vital Signs:
Vital Signs
Temp Pulse Resp BP Pulse Ox
98.0 F 96 20 158/100 98
06/04/24 15:11 06/04/24 15:11 06/04/24 15:11 06/04/24 15:11 06/04/24 15:11
I&O
06/03/24 06/04/24 06/05/24
06:59 06:59 06:59
Intake Total 320 / 320 480 / 480
Output Total 500 / 500 500 / 500
Balance -180 / -180 -20 / -20
Physical Exam
-
General: No Apparent Distress
HEENT: Normocephalic
Respiratory: Negative Wheezes
Cardiac: Regular Rhythm and S1/S2
GI: Soft
Genito-urinary: No Costovertebral Tender and Kingston
Neuro: AO x 3
Hematologic / Lymphatic: No Lymphadenopathy
Psych: Calm
Data Reviewed
-
Total Time Spent with Patient (in minutes): 41
Labs: Labs Reviewed by me
[2024-06-04 16:16] LABS: Glucose - Point of Care 215 mg/dl (70-99)
[2024-06-04] MEDS: NOVOLOG FLEXPEN-LOW RESISTANCE 2 UNITS SC (16:20)
[2024-06-04] MEDS: LIPITOR 20 MG PO (21:22)
[2024-06-04] MEDS: TOPROL XL 100 MG PO (21:22)
[2024-06-04 21:30] LABS: Glucose - Point of Care 176 mg/dl (70-99)
[2024-06-05] VITALS (10 sets, daily range): BP systolic 111–175; BP diastolic 48–93; BMI 27.7
[2024-06-05] MEDS: ROXICODONE 5 MG PO (01:16)
[2024-06-05] MEDS: CALAMINE LOTION 180 ML TOPICAL (02:31)
[2024-06-05] MEDS: TYLENOL PO ×2 (05:00→16:14)
[2024-06-05] MEDS: MORPHINE SULFATE 2 MG IV (05:16)
[2024-06-05 05:19] LABS: Glucose - Point of Care 181 mg/dl (70-99)
[2024-06-05] MEDS: NOVOLOG FLEXPEN-LOW RESISTANCE 1 UNITS SC ×3 (05:19→16:37)
[2024-06-05] MEDS: ANCEF 10 IV (06:16)
[2024-06-05 07:13] LABS: Mean Corp Hgb Conc. 33.3 g/dL (33.0-37.0); Mean Corpuscular Hgb 29.9 pg (27.0-31.0); Mean Corpuscular Volume 89.7 fL (81.0-99.0); Mean Platelet Volume 11.1 fL (7.4-10.4); Platelet Count 169 10^3/uL (130-400); Red Blood Cell Count 3.68 10^6/uL (4.20-5.40); Red Cell Dist. Width 13.7 % (11.5-14.5)
[2024-06-05 07:29] LABS: Blood Urea Nitrogen 21 mg/dl (7-17); Calcium 8.4 mg/dl (8.4-10.2); Carbon Dioxide 25 mmol/L (22-30); Chloride 102 mmol/L (98-107); Estimated Creatinine Clearance 49 ml/min; Glucose 163 mg/dl (70-99); Potassium 3.8 mmol/L (3.5-5.1); Sodium 139 mmol/L (135-145); eGFR > 60.00
[2024-06-05] MEDS: SENOKOT 17.2 MG PO ×2 (08:49→20:27)
[2024-06-05] MEDS: PROTONIX 40 MG PO (08:50)
[2024-06-05] MEDS: COLACE 100 MG PO ×2 (08:50→20:26)
[2024-06-05] MEDS: JANUVIA 100 MG PO (08:50)
[2024-06-05] MEDS: AMARYL 2 MG PO (08:50)
[2024-06-05] MEDS: ZESTRIL 10 MG PO ×2 (08:50→20:28)
[2024-06-05] MEDS: TYLENOL 650 MG PO ×3 (08:50→20:27)
[2024-06-05] MEDS: NAMENDA 10 MG PO ×2 (08:50→20:25)
[2024-06-05] MEDS: DESENEX/MITRAZOL/ZEASORB 1 APPLIC TOPICAL (08:50)
--- NOTE | 2024-06-05 09:03 | W.PN.UPDATE ---
Update Note
Progress Note Update
Ms. Rubio is resting comfortably in bed this morning. She denies any pain at present. Plan is to proceed with OR today under the direction of Dr. Maher. Antibiotics ordered to OR.
[2024-06-05 12:02] LABS: Glucose - Point of Care 175 mg/dl (70-99)
--- NOTE | 2024-06-05 12:12 | CM ---
Chart reviewed
Pt for OR today for repair of hip fracture
PT/OT eval pending post-op
Plan - anticipate SNF when medically stable
--- NOTE | 2024-06-05 12:55 | W.PN.HOSP.TC ---
Today's Communication/Plan
-
OR today
Assessment / Plan
Assessment / Plan
Assessment:
Traumatic Minimally displaced left intertrochanteric femoral fracture
- Ortho consulted, NPO p MN for OR today
- continue pain control
- EKG with rate controlled A. Fib
- recent Echo 02/20: normal ventricular size/function with normal EF, mild LVH.
- intermediate to higher risk for intermediate risk procedure. No active cardio-pulmonary complaints. Continue juan-operatively tele monitoring and BB. NSQI cardiac complication 4.1%, any complication 17%
OCTAVIO
- hold PO Lasix until post-op
- follow BMP
Acute urinary retention
- Kingston placed 06/04
Parox A. fib
- continue BB
- holding Eliquis for OR
Essential HTN
- continue home BP meds
Peripheral edema by history
- hold PO Lasix until post-op
Mild Dementia
- continue Memantine
PVD, carotid artery disease
hx of Left carotid endarterectomy
NIDDM
- cont Januvia, Glimepiride (cont for now, hold while NPO)
- SSI
- Diabetic diet postop
- most recent A1c is October was 6.4
HLD
- cont statin
DVT ppx: SCDs
Code: Full
Anticipated Discharge: > 48 hours
Subjective/Interval History
-
Date of Service: June 05, 2024
resting comfortable
Objective Data
-
Labs:
Laboratory Results
06/05/24
04:32
WBC 9.0
Hgb 11.0 L
Hct 33.0 L
Plt Count 169
Sodium 139
Potassium 3.8
Chloride 102
Carbon Dioxide 25
BUN 21 H
Creatinine 0.9
Glucose 163 H
Calcium 8.4
Vital Signs:
Vital Signs
Temp Pulse Resp BP Pulse Ox
98.6 F 99 16 175/89 95
06/05/24 11:10 06/05/24 11:10 06/05/24 11:10 06/05/24 11:10 06/05/24 11:10
I&O
06/04/24 06/05/24 06/06/24
06:59 06:59 06:59
Intake Total 480 / 480 840 / 840
Output Total 500 / 500 950 / 950 225 / 225
Balance -20 / -20 -110 / -110 -225 / -225
Physical Exam
-
General: No Apparent Distress
HEENT: Normocephalic and Atraumatic
Respiratory: Negative Wheezes
Cardiac: Regular Rhythm and S1/S2
GI: Soft
Genito-urinary: No Costovertebral Tender
Neuro: AO x 3
Hematologic / Lymphatic: No Lymphadenopathy
Psych: Calm
Data Reviewed
-
Total Time Spent with Patient (in minutes): 42
Labs: Labs Reviewed by me
[2024-06-05] MEDS: MORPHINE SULFATE 1 MG IV ×3 (15:29→15:50)
[2024-06-05] MEDS: ZOFRAN 4 MG IV (16:17)
[2024-06-05] MEDS: ANCEF 5 IV (16:32)
[2024-06-05] MEDS: NSS 1000 IV (16:37)
[2024-06-05 16:38] LABS: Glucose - Point of Care 176 mg/dl (70-99)
--- NOTE | 2024-06-05 16:45 | PTCARENOTE ---
Patient received from PACU in bed; IVF infusing; Surgical site assessed with [employer], three primaseal's to left hip/thigh with small amount of sanguinous drainage; Bilateral pedal pulses weak to palpation; Patient can wiggle toes bilaterally;
Patient drowsy but oriented to person and place; Patient on 3L NC; Call ware within reach; Bed alarm armed; Bed in lowest position, wheels locked; Care ongoing
[2024-06-05 23:12] LABS: Glucose - Point of Care 322 mg/dl (70-99)
[2024-06-06] VITALS (8 sets, daily range): BP systolic 120–159; BP diastolic 61–91; PULSE 100; BMI 28.0
[2024-06-06] MEDS: DESENEX/MITRAZOL/ZEASORB 1 APPLIC TOPICAL ×2 (00:04→22:06)
[2024-06-06] MEDS: ANCEF 5 IV (00:04)
[2024-06-06] MEDS: TOPROL XL PO (00:07)
[2024-06-06] MEDS: TYLENOL PO ×2 (00:07→05:05)
[2024-06-06] MEDS: LIPITOR PO (00:08)
[2024-06-06 05:02] LABS: Mean Corp Hgb Conc. 34.5 g/dL (33.0-37.0); Mean Corpuscular Hgb 30.6 pg (27.0-31.0); Mean Corpuscular Volume 88.7 fL (81.0-99.0); Mean Platelet Volume 10.8 fL (7.4-10.4); Platelet Count 160 10^3/uL (130-400); Red Blood Cell Count 3.27 10^6/uL (4.20-5.40); Red Cell Dist. Width 13.5 % (11.5-14.5); White Blood Cell Count 8.4 10^3/uL (4.8-10.8)
[2024-06-06 05:30] LABS: Blood Urea Nitrogen 20 mg/dl (7-17); Calcium 8.1 mg/dl (8.4-10.2); Carbon Dioxide 21 mmol/L (22-30); Chloride 102 mmol/L (98-107); Estimated Creatinine Clearance 49 ml/min; Glucose 311 mg/dl (70-99); Sodium 134 mmol/L (135-145); eGFR > 60.00
[2024-06-06] MEDS: NSS IV (05:44)
--- NOTE | 2024-06-06 06:44 | W.PN.ORTHO ---
Today's Communication / Plan
-
PT/OT
Weightbearing as tolerated with walker
Modified Eliquis dose
Observe hemoglobin
half-way facility once medically stable
Assessment
.
Distal Motor Intact: Yes
Dressing:
Clean, dry and intact.
Plan
.
Surgery / Date: Left hip gamma nail 06/05 Ritting
DVT Prophylaxis: Other
Activity:
Out of bed.
PT/OT
Discharge Plan: SNF
Subjective
.
.:
Patient resting comfortably.
Vital Signs and Labs
.
Vital Signs and Labs:
Lab Results
06/06/24 04:25
06/06/24 04:25
Temp Pulse Resp BP Pulse Ox
98.0 F 99 18 159/88 97
06/06/24 03:39 06/06/24 03:39 06/06/24 03:39 06/06/24 03:39 06/06/24 03:39
[2024-06-06] MEDS: ROXICODONE 5 MG PO (06:49)
[2024-06-06 07:20] LABS: Glucose - Point of Care 275 mg/dl (70-99)
[2024-06-06] MEDS: ZESTRIL 10 MG PO ×2 (07:44→19:54)
[2024-06-06] MEDS: JANUVIA 100 MG PO (07:44)
[2024-06-06] MEDS: SENOKOT 17.2 MG PO ×2 (07:44→19:54)
[2024-06-06] MEDS: AMARYL 2 MG PO (07:44)
[2024-06-06] MEDS: COLACE 100 MG PO ×2 (07:44→19:53)
[2024-06-06] MEDS: PROTONIX 40 MG PO (07:44)
[2024-06-06] MEDS: ELIQUIS 2.5 MG PO ×2 (07:44→19:53)
[2024-06-06] MEDS: NAMENDA 10 MG PO ×2 (07:44→19:54)
[2024-06-06] MEDS: TYLENOL 650 MG PO ×5 (07:44→23:08)
[2024-06-06] MEDS: NOVOLOG FLEXPEN-LOW RESISTANCE 3 UNITS SC (07:45)
[2024-06-06] MEDS: DESENEX/MITRAZOL/ZEASORB TOPICAL (07:52)
[2024-06-06] MEDS: NOVOLOG FLEXPEN-LOW RESISTANCE 4 UNITS SC ×2 (11:39→17:04)
[2024-06-06 11:40] LABS: Glucose - Point of Care 321 mg/dl (70-99)
[2024-06-06 11:50] LABS: Glucose - Point of Care 323 mg/dl (70-99)
--- NOTE | 2024-06-06 14:44 | W.PN.HOSP.TC ---
Today's Communication/Plan
-
DC planning
Assessment / Plan
Assessment / Plan
Assessment:
Traumatic Minimally displaced left intertrochanteric femoral fracture
- s/p Left hip gamma nail 06/05 Ritting (Ortho)
- continue pain control as prescribed
- DVT ppx: 1/2 dose Eliquis x 3 days
- PT/OT - SNF being explored
OCTAVIO
- resolved
- follow BMP
Acute urinary retention
- Kingston placed 06/04
Parox A. fib
- continue BB
- 1/2 dose Eliquis x 3 days
Essential HTN
- continue home BP meds
Peripheral edema by history
- resume PO Lasix
Mild Dementia
- continue Memantine
PVD, carotid artery disease
hx of Left carotid endarterectomy
NIDDM
- cont Januvia, Glimepiride
- SSI
- Diabetic diet postop
- most recent A1c is October was 6.4
HLD
- cont statin
DVT ppx: SCDs
Code: Full
More than 30 minutes spent in discharge including
Final examination of the patient
Summarizing hospital stay
Instructions for continuing care to all relevant caregivers
Preparation of discharge records, prescriptions, and referral forms
Total time spent (in minutes): 41
Anticipated Discharge: Today
Subjective/Interval History
-
Date of Service: June 06, 2024
denies any new complaints at present
Objective Data
-
Labs:
Laboratory Results
06/06/24
04:25
WBC 8.4
Hgb 10.0 L
Hct 29.0 L
Plt Count 160
Sodium 134 L
Potassium 4.0
Chloride 102
Carbon Dioxide 21 L
BUN 20 H
Creatinine 0.9
Glucose 311 H
Calcium 8.1 L
Vital Signs:
Vital Signs
Temp Pulse Resp BP Pulse Ox
98.7 F 101 20 132/61 98
06/06/24 12:00 06/06/24 12:00 06/06/24 12:00 06/06/24 12:00 06/06/24 12:00
I&O
06/05/24 06/06/24 06/07/24
06:59 06:59 06:59
Intake Total 840 / 840 316 / 316
Output Total 950 / 950 645 / 645 100 / 100
Balance -110 / -110 -329 / -329 -100 / -100
Physical Exam
-
General: No Apparent Distress
HEENT: Normocephalic and Atraumatic
Respiratory: Negative Wheezes
Cardiac: Regular Rhythm and S1/S2
GI: Soft
Genito-urinary: No Costovertebral Tender
Musculoskeletal: No Edema
Neuro: AO x 3
Hematologic / Lymphatic: No Lymphadenopathy
Psych: Calm
Data Reviewed
-
Total Time Spent with Patient (in minutes): 41
Labs: Labs Reviewed by me
--- NOTE | 2024-06-06 14:55 | CM ---
Chart reviewed
PT/OT - recs snf
Updates sent in [facility] Port to [facility]
Pt accepted at [facility] pending bed availability
Plan - [facility] SNF when medically ready pend bed availability
[2024-06-06] MEDS: LASIX 40 MG PO (15:36)
[2024-06-06 16:49] LABS: Glucose - Point of Care 310 mg/dl (70-99)
[2024-06-06] MEDS: GLUCOPHAGE 500 MG PO (17:04)
[2024-06-06 21:49] LABS: Glucose - Point of Care 355 mg/dl (70-99)
[2024-06-06] MEDS: LIPITOR 20 MG PO (22:02)
[2024-06-06] MEDS: TOPROL XL 100 MG PO (22:03)
[2024-06-06] MEDS: NOVOLOG FLEXPEN 5 UNITS SC (22:05)
[2024-06-06] MEDS: CALAMINE LOTION 1 ML TOPICAL (23:08)
[2024-06-06 23:50] LABS: Glucose - Point of Care 245 mg/dl (70-99)
[2024-06-07 03:30] VITALS: BP 155/72
[2024-06-07 05:14] VITALS: BMI 27.9
[2024-06-07] MEDS: TYLENOL PO (05:23)
[2024-06-07 05:34] LABS: Hematocrit 29.8 % (37.0-47.0); Hemoglobin 9.7 g/dL (12.0-16.0); Mean Corp Hgb Conc. 32.6 g/dL (33.0-37.0); Mean Corpuscular Hgb 29.8 pg (27.0-31.0); Mean Corpuscular Volume 91.4 fL (81.0-99.0); Mean Platelet Volume 10.6 fL (7.4-10.4); Platelet Count 161 10^3/uL (130-400); Red Blood Cell Count 3.26 10^6/uL (4.20-5.40); Red Cell Dist. Width 13.6 % (11.5-14.5); White Blood Cell Count 10.4 10^3/uL (4.8-10.8)
[2024-06-07 05:55] LABS: Blood Urea Nitrogen 22 mg/dl (7-17); Calcium 8.3 mg/dl (8.4-10.2); Carbon Dioxide 25 mmol/L (22-30); Chloride 101 mmol/L (98-107); Estimated Creatinine Clearance 40 ml/min; Glucose 129 mg/dl (70-99); Potassium 3.6 mmol/L (3.5-5.1); Sodium 139 mmol/L (135-145)
[2024-06-07] MEDS: ROXICODONE 5 MG PO ×2 (06:20→14:57)
[2024-06-07 07:28] LABS: Glucose - Point of Care 171 mg/dl (70-99)
--- NOTE | 2024-06-07 07:51 | W.PN.ORTHO ---
Today's Communication / Plan
-
PT/OT
Weightbearing as tolerated with walker
Modified Eliquis dose
Observe hemoglobin- stable
retirement facility once medically stable
DC info updated
Ortho surg will follow peripherally; please reengage with questions/concerns
Assessment
.
Distal Motor Intact: Yes
Dressing:
Clean, dry and intact.
Plan
.
Surgery / Date: Left hip CMN 06/05 Ritting
Activity:
Out of bed.
PT/OT
Subjective
.
.:
Patient resting comfortably.
Vital Signs and Labs
.
Vital Signs and Labs:
Lab Results
06/07/24 04:30
06/07/24 04:30
Temp Pulse Resp BP Pulse Ox
97.8 F 90 18 155/72 97
06/07/24 03:30 06/07/24 03:30 06/07/24 03:30 06/07/24 03:30 06/07/24 03:30
[2024-06-07 08:50] VITALS: BP 165/82
--- NOTE | 2024-06-07 09:32 | CM ---
Addendum entered by Irene Ferguson 06/07/24 13:10:
Ambulance 1300 supervising film or videotape editor time cancelled; new supervising film or videotape editor time pending
Notified daughter via her cell phone. She was on her way to the hospital
Addendum entered by Irene Ferguson 06/07/24 13:04:
Ambulance supervising film or videotape editor is 1300
Addendum entered by Irene Ferguson 06/07/24 10:20:
CM notified daughter, Renetta, via phone to discuss discharge plan
IMM benefit explained; daughter reported she understood benefit; form dated/timed @1009
Original Note:
Plan: Discharge to [facility] today via Ambulance
and
[2024-06-07] MEDS: NOVOLOG FLEXPEN-LOW RESISTANCE 1 UNITS SC (10:13)
[2024-06-07] MEDS: ZESTRIL 10 MG PO (10:14)
[2024-06-07] MEDS: ELIQUIS 2.5 MG PO (10:14)
[2024-06-07] MEDS: DESENEX/MITRAZOL/ZEASORB 1 APPLIC TOPICAL (10:15)
[2024-06-07] MEDS: PROTONIX 40 MG PO (10:15)
[2024-06-07] MEDS: NAMENDA 10 MG PO (10:16)
[2024-06-07] MEDS: SENOKOT PO (10:16)
[2024-06-07] MEDS: GLUCOPHAGE 500 MG PO (10:16)
[2024-06-07] MEDS: TYLENOL 650 MG PO ×3 (10:16→14:57)
[2024-06-07] MEDS: AMARYL 2 MG PO (10:17)
[2024-06-07] MEDS: COLACE PO (10:17)
[2024-06-07] MEDS: LASIX 40 MG PO (10:17)
[2024-06-07] MEDS: JANUVIA 100 MG PO (10:17)
[2024-06-07 11:35] LABS: Glucose - Point of Care 231 mg/dl (70-99)
[2024-06-07 12:23] VITALS: BP 175/95
--- NOTE | 2024-06-07 12:40 | W.PN.HOSP.TC ---
Today's Communication/Plan
-
dc to SNF today
Assessment / Plan
Assessment / Plan
Assessment:
Traumatic Minimally displaced left intertrochanteric femoral fracture
- s/p Left hip gamma nail 06/05 Ritting (Ortho)
- continue pain control as prescribed
- DVT ppx: 1/2 dose Eliquis x 3 days then Full dose Eliquis ok on Monday per Orthopedics
- PT/OT - SNF today
OCTAVIO
- resolved
- follow BMP
Acute urinary retention
- Kingston placed 06/04; void trial 06/08 at [facility]
Parox A. fib
- continue BB
- 1/2 dose Eliquis x 3 days then Full dose Eliquis ok on Monday per Orthopedics
Essential HTN
- continue home BP meds
Peripheral edema by history
- continue PO Lasix
Mild Dementia
- continue Memantine
PVD, carotid artery disease
hx of Left carotid endarterectomy
NIDDM
- cont Januvia, Glimepiride
- SSI
- Diabetic diet postop
- most recent A1c is October was 6.4
HLD
- cont statin
DVT ppx: SCDs
Code: Full
More than 30 minutes spent in discharge including
Final examination of the patient
Summarizing hospital stay
Instructions for continuing care to all relevant caregivers
Preparation of discharge records, prescriptions, and referral forms
Total time spent (in minutes): 41
Anticipated Discharge: Today
Subjective/Interval History
-
Date of Service: June 07, 2024
denies any complaints at present
Objective Data
-
Labs:
Laboratory Results
06/07/24
04:30
WBC 10.4
Hgb 9.7 L
Hct 29.8 L
Plt Count 161
Sodium 139
Potassium 3.6
Chloride 101
Carbon Dioxide 25
BUN 22 H
Creatinine 1.1 H
Glucose 129 H
Calcium 8.3 L
Vital Signs:
Vital Signs
Temp Pulse Resp BP Pulse Ox
98.5 F 102 18 175/95 98
06/07/24 12:23 06/07/24 12:23 06/07/24 12:23 06/07/24 12:23 06/07/24 12:23
I&O
06/06/24 06/07/24 06/08/24
06:59 06:59 06:59
Intake Total 316 / 316 240 / 240 240 / 240
Output Total 645 / 645 1275 / 1275
Balance -329 / -329 -1035 / -1035 240 / 240
Physical Exam
-
General: No Apparent Distress
HEENT: Normocephalic and Atraumatic
Respiratory: Negative Wheezes
Cardiac: Regular Rhythm and S1/S2
GI: Soft
Genito-urinary: No Costovertebral Tender
Neuro: AO x 3
Psych: Calm
Data Reviewed
-
Total Time Spent with Patient (in minutes): 41
Labs: Labs Reviewed by me
--- NOTE | 2024-06-07 12:50 | W.DS.TRANS ---
DC Summary - [employer] In[employer]
-
Discharge Instructions:
Sleep Apnea Risk Intermediate
Discharge Diagnosis/Procedures Traumatic Minimally displaced left
intertrochanteric femoral fracture. s/p Left hip
gamma nail 06/05 Ritting. Urinary retention
requiring Kingston
Diet Diabetic, Carb Controlled
Activity With Walker,As tolerated
Additional Activity WBAT
Bathing Restrictions OK to Shower
Other Services PT,OT
Instructions: Hip fracture
Stand-Alone Forms:
Changes to Home Medications: No
Discharge Medications:
DC Medications w/original date entered in [employer]
atorvastatin 20 mg tablet 20 mg PO HS High cholesterol 07/29/15
ferrous sulfate 325 mg (65 mg iron) tablet (iron) 325 mg PO DAILY Supplement 01/11/21
lisinopril 10 mg tablet 10 mg PO BID Blood pressure 01/11/21
methenamine hippurate 1 gram tablet 1 g PO BID Urinary issue 01/11/21
pantoprazole 40 mg tablet,delayed release 40 mg PO DAILY Gastrointestinal issue 01/11/21
sitagliptin phosphate 100 mg tablet (Januvia) 100 mg PO DAILY Diabetes 01/11/21
calcium polycarbophil 625 mg tablet (Fiber (calcium polycarbophil)) 625 mg PO DAILY Gastrointestinal issue 10/08/22
memantine 10 mg tablet 10 mg PO BID Mental Health/Anxiety 10/08/22
metformin 1,000 mg tablet 500 mg PO BID Diabetes 10/08/22
metoprolol succinate 100 mg tablet,extended release 24 hr 100 mg PO HS Blood clot prevention/tx 10/08/22
nystatin 100,000 unit/gram topical powder 1 applic topical BID candidiasis 06/19/23
acetaminophen 325 mg tablet (Tylenol) 650 mg PO Q4HPRN PRN mild pain 06/03/24
aluminum-mag hydroxide-simethicone 200 mg-200 mg-20 mg/5 mL oral susp 30 ml PO BIDPRN PRN heartburn 06/03/24
furosemide 20 mg tablet 40 mg PO DAILY Fluid Retention/Swelling 06/03/24
glimepiride 2 mg tablet 2 mg PO DAILY 06/03/24
loperamide 2 mg tablet 2 mg PO DAILYPRN PRN diarrhea 06/03/24
sodium chloride 0.65 % nasal spray aerosol 1 spray intranasal DAILYPRN PRN dryness 06/03/24
acetaminophen 325 mg tablet 650 mg (2 x 325 mg) PO Q4HWA #100 tabs 06/07/24
apixaban 2.5 mg tablet (Eliquis) 2.5 mg PO BID #3 tabs 06/07/24
apixaban 5 mg tablet (Eliquis) 5 mg PO BID Blood clot prevention/tx #60 tabs 06/07/24
oxycodone 5 mg tablet 5 mg PO Q4HPRN PRN severe pain #10 tabs 06/07/24
tamsulosin 0.4 mg capsule 0.4 mg PO DAILY #10 caps 06/07/24
Home Medication Changes
Pending Results: No
Total time spent discharging patient (in min): 41
[2024-06-07] MEDS: APRESOLINE 5 MG IV (12:54)
[2024-06-07] MEDS: NOVOLOG FLEXPEN-LOW RESISTANCE 2 UNITS SC (12:55)
[2024-06-07 14:21] VITALS: BP 100/81
--- NOTE | 2024-06-07 14:50 | PTCARENOTE ---
called [phone] to give report no answer.
== END 2024-06-07 15:30 | DRG 481 ==
LOC: 2 SOUTH 22:19
PROVIDERS: Clinical Nurse Specialist Family Health; Orthopaedic Surgery Hand Surgery; ADMITTING PHYSICIAN Internal Medicine; ATTENDING PHYSICIAN Internal Medicine; CONSULT PHYSICIAN Orthopaedic Surgery; EMERGENCY PHYSICIAN Emergency Medicine; FAMILY PHYSICIAN Nurse Practitioner Family
PROC: 0QS736Z Reposition Left Upper Femur with Intramedullary Internal Fixation Device, Percutaneous Approach (ICD-10-PCS; 2024-06-05)
DX: S72.142A Displaced intertrochanteric fracture of left femur, initial encounter for closed fracture (principal); A69.20 Lyme disease, unspecified; F03.A4 Unspecified dementia, mild, with anxiety; F03.A3 Unspecified dementia, mild, with mood disturbance; F03.A18 Unspecified dementia, mild, with other behavioral disturbance; N17.9 Acute kidney failure, unspecified; E11.51 Type 2 diabetes mellitus with diabetic peripheral angiopathy without gangrene; E11.65 Type 2 diabetes mellitus with hyperglycemia; F32.A Depression, unspecified; I10 Essential (primary) hypertension; I49.5 Sick sinus syndrome; I48.0 Paroxysmal atrial fibrillation; E86.0 Dehydration; E78.00 Pure hypercholesterolemia, unspecified; G47.00 Insomnia, unspecified; G47.30 Sleep apnea, unspecified; K21.9 Gastro-esophageal reflux disease without esophagitis; W01.0XXA Fall on same level from slipping, tripping and stumbling without subsequent striking against object, initial encounter; R33.9 Retention of urine, unspecified; Z79.01 Long term (current) use of anticoagulants; Z79.899 Other long term (current) drug therapy; Z95.0 Presence of cardiac pacemaker; Z86.79 Personal history of other diseases of the circulatory system; Z86.73 Personal history of transient ischemic attack (TIA), and cerebral infarction without residual deficits; Z79.84 Long term (current) use of oral hypoglycemic drugs; Z87.891 Personal history of nicotine dependence; Z90.89 Acquired absence of other organs; Z90.710 Acquired absence of both cervix and uterus; Z88.8 Allergy status to other drugs, medicaments and biological substances; Z88.0 Allergy status to penicillin; Z82.49 Family history of ischemic heart disease and other diseases of the circulatory system
CPT/HCPCS: 70450; 73502; 76000; 80048; 80053; 81003; 81015; 82962; 85025; 85027; 87077; 87086; 87186; 93005; 96374; 96376; 97163; 97167; 99285; C1713

== ENCOUNTER → 2024-06-10 11:45 | Outpatient (REF) | payer OTHER, MEDICARE, BC, SELFPAY ==
[2024-06-10 12:26] LABS: % Basophils 0.4 % (0-2); % Eosinophils 5.2 % (0-6); % Immature Granulocytes 1.8 % (0-0.5); % Lymphocytes 22.8 % (20.5-51.1); % Monocytes 8.4 % (1.7-9.3); % Neutrophils 61.4 % (42.2-75.2); Absolute Eosinophils 0.4 10^3/uL (0-0.7); Absolute Immature Granulocytes 0.1 10^3/uL (0-0.05); Absolute Lymphocytes 1.8 10^3/uL (1.2-3.4); Absolute Monocytes 0.7 10^3/uL (0.1-0.6); Absolute Neutrophils 4.8 10^3/uL (1.4-6.5); Hematocrit 26.4 % (37.0-47.0); Hemoglobin 8.7 g/dL (12.0-16.0); Mean Corpuscular Hgb 29.8 pg (27.0-31.0); Mean Corpuscular Volume 90.4 fL (81.0-99.0); Mean Platelet Volume 10.7 fL (7.4-10.4); Nucleated Red Blood Cells % 0 %; Platelet Count 198 10^3/uL (130-400); Red Blood Cell Count 2.92 10^6/uL (4.20-5.40); Red Cell Dist. Width 13.5 % (11.5-14.5); White Blood Cell Count 7.8 10^3/uL (4.8-10.8)
[2024-06-10 12:34] LABS: ALT (SGPT) 14 U/L (0-35); AST (SGOT) 15 U/L (14-36); Alkaline Phosphatase 80 U/L (38-126); Blood Urea Nitrogen 20 mg/dl (7-17); Calcium 8.3 mg/dl (8.4-10.2); Carbon Dioxide 25 mmol/L (22-30); Chloride 102 mmol/L (98-107); Glucose 114 mg/dl (70-99); Potassium 3.4 mmol/L (3.5-5.1); Sodium 138 mmol/L (135-145); Total Bilirubin 0.7 mg/dl (0.2-1.3); Total Protein 5.6 g/dl (6.3-8.2); eGFR 56.95
== END ==
LOC: OLABP 11:45
PROVIDERS: ATTENDING PHYSICIAN Family Medicine
DX: S72.142D Displaced intertrochanteric fracture of left femur, subsequent encounter for closed fracture with routine healing (principal); N17.9 Acute kidney failure, unspecified; I48.0 Paroxysmal atrial fibrillation; I50.30 Unspecified diastolic (congestive) heart failure; I11.0 Hypertensive heart disease with heart failure; I73.9 Peripheral vascular disease, unspecified; E11.9 Type 2 diabetes mellitus without complications; F03.90 Unspecified dementia, unspecified severity, without behavioral disturbance, psychotic disturbance, mood disturbance, and anxiety
CPT/HCPCS: 36415; 80053; 85025; 87324; 87449

== ENCOUNTER → 2024-06-12 10:40 | Outpatient (REF) | payer OTHER, MEDICARE, BC, SELFPAY ==
[2024-06-12 13:30] LABS: Blood Urea Nitrogen 19 mg/dl (7-17); Calcium 8.3 mg/dl (8.4-10.2); Carbon Dioxide 26 mmol/L (22-30); Chloride 101 mmol/L (98-107); Glucose 88 mg/dl (70-99); Potassium 3.7 mmol/L (3.5-5.1); Sodium 137 mmol/L (135-145); eGFR 56.95
== END ==
LOC: OLABP 10:40
PROVIDERS: ATTENDING PHYSICIAN Family Medicine
DX: S72.142D Displaced intertrochanteric fracture of left femur, subsequent encounter for closed fracture with routine healing (principal); N17.9 Acute kidney failure, unspecified; I48.0 Paroxysmal atrial fibrillation; I50.30 Unspecified diastolic (congestive) heart failure; I11.0 Hypertensive heart disease with heart failure; I73.9 Peripheral vascular disease, unspecified; E11.9 Type 2 diabetes mellitus without complications; F03.90 Unspecified dementia, unspecified severity, without behavioral disturbance, psychotic disturbance, mood disturbance, and anxiety
CPT/HCPCS: 36415; 80048

== ENCOUNTER → 2024-06-19 12:20 | Outpatient (REF) | payer OTHER, MEDICARE, BC, SELFPAY ==
[2024-06-19 13:00] LABS: % Basophils 0.5 % (0-2); % Eosinophils 3.4 % (0-6); % Immature Granulocytes 1.3 % (0-0.5); % Lymphocytes 26.6 % (20.5-51.1); % Monocytes 7.1 % (1.7-9.3); % Neutrophils 61.1 % (42.2-75.2); Absolute Basophils 0.1 10^3/uL (0-0.2); Absolute Eosinophils 0.3 10^3/uL (0-0.7); Absolute Immature Granulocytes 0.1 10^3/uL (0-0.05); Absolute Lymphocytes 2.5 10^3/uL (1.2-3.4); Absolute Monocytes 0.7 10^3/uL (0.1-0.6); Absolute Neutrophils 5.7 10^3/uL (1.4-6.5); Hemoglobin 9.7 g/dL (12.0-16.0); Mean Corp Hgb Conc. 32.3 g/dL (33.0-37.0); Mean Corpuscular Hgb 29.5 pg (27.0-31.0); Mean Corpuscular Volume 91.2 fL (81.0-99.0); Mean Platelet Volume 10.2 fL (7.4-10.4); Nucleated Red Blood Cells % 0 %; Platelet Count 360 10^3/uL (130-400); Red Blood Cell Count 3.29 10^6/uL (4.20-5.40); Red Cell Dist. Width 13.8 % (11.5-14.5); White Blood Cell Count 9.3 10^3/uL (4.8-10.8)
[2024-06-19 13:48] LABS: Blood Urea Nitrogen 38 mg/dl (7-17); Calcium 8.6 mg/dl (8.4-10.2); Carbon Dioxide 24 mmol/L (22-30); Chloride 104 mmol/L (98-107); Glucose 114 mg/dl (70-99); Iron 43 ug/dl (37-170); Potassium 4.1 mmol/L (3.5-5.1); Sodium 140 mmol/L (135-145); eGFR 41.57
[2024-06-19 13:57] LABS: Percent Saturation 16 % (20-50); Total Iron Binding Capacity 254 ug/dl (265-497)
== END ==
LOC: OLABP 12:20
PROVIDERS: ATTENDING PHYSICIAN Family Medicine
DX: S72.142D Displaced intertrochanteric fracture of left femur, subsequent encounter for closed fracture with routine healing (principal); N17.9 Acute kidney failure, unspecified; I48.0 Paroxysmal atrial fibrillation; I50.30 Unspecified diastolic (congestive) heart failure; I11.0 Hypertensive heart disease with heart failure; I73.9 Peripheral vascular disease, unspecified; E11.9 Type 2 diabetes mellitus without complications; F03.90 Unspecified dementia, unspecified severity, without behavioral disturbance, psychotic disturbance, mood disturbance, and anxiety
CPT/HCPCS: 36415; 80048; 83540; 83550; 85025

== ENCOUNTER → 2024-07-09 09:46 | Outpatient (REF) | payer OTHER, MEDICARE, BC, SELFPAY ==
[2024-07-09 10:51] LABS: % Basophils 0.4 % (0-2); % Eosinophils 5.6 % (0-6); % Immature Granulocytes 1.5 % (0-0.5); % Lymphocytes 24.8 % (20.5-51.1); % Monocytes 8.1 % (1.7-9.3); % Neutrophils 59.6 % (42.2-75.2); Absolute Eosinophils 0.5 10^3/uL (0-0.7); Absolute Immature Granulocytes 0.1 10^3/uL (0-0.05); Absolute Lymphocytes 2.1 10^3/uL (1.2-3.4); Absolute Monocytes 0.7 10^3/uL (0.1-0.6); Hematocrit 36.1 % (37.0-47.0); Hemoglobin 11.1 g/dL (12.0-16.0); Mean Corp Hgb Conc. 30.7 g/dL (33.0-37.0); Mean Corpuscular Hgb 28.8 pg (27.0-31.0); Mean Corpuscular Volume 93.8 fL (81.0-99.0); Mean Platelet Volume 11.1 fL (7.4-10.4); Nucleated Red Blood Cells % 0 %; Platelet Count 228 10^3/uL (130-400); Red Blood Cell Count 3.85 10^6/uL (4.20-5.40); Red Cell Dist. Width 14.3 % (11.5-14.5); White Blood Cell Count 8.4 10^3/uL (4.8-10.8)
[2024-07-09 11:07] LABS: Blood Urea Nitrogen 41 mg/dl (7-17); Calcium 8.6 mg/dl (8.4-10.2); Carbon Dioxide 19 mmol/L (22-30); Chloride 105 mmol/L (98-107); Glucose 137 mg/dl (70-99); Potassium 3.7 mmol/L (3.5-5.1); Sodium 140 mmol/L (135-145); eGFR 35.01
== END ==
LOC: OLABP 09:46
PROVIDERS: ATTENDING PHYSICIAN Family Medicine
DX: S72.142D Displaced intertrochanteric fracture of left femur, subsequent encounter for closed fracture with routine healing (principal); N17.9 Acute kidney failure, unspecified; I48.0 Paroxysmal atrial fibrillation; I50.30 Unspecified diastolic (congestive) heart failure; I11.0 Hypertensive heart disease with heart failure; I73.9 Peripheral vascular disease, unspecified; E11.9 Type 2 diabetes mellitus without complications; F03.90 Unspecified dementia, unspecified severity, without behavioral disturbance, psychotic disturbance, mood disturbance, and anxiety
CPT/HCPCS: 36415; 80048; 85025

== ENCOUNTER → 2024-07-17 11:41 | Outpatient (REF) | payer OTHER, MEDICARE, BC, SELFPAY ==
[2024-07-17 12:43] LABS: Blood Urea Nitrogen 38 mg/dl (7-17); Carbon Dioxide 16 mmol/L (22-30); Chloride 108 mmol/L (98-107); Glucose 187 mg/dl (70-99); Potassium 3.6 mmol/L (3.5-5.1); Sodium 136 mmol/L (135-145); eGFR 45.76
== END ==
LOC: OLABP 11:41
PROVIDERS: ATTENDING PHYSICIAN Family Medicine
DX: S72.412D Displaced unspecified condyle fracture of lower end of left femur, subsequent encounter for closed fracture with routine healing (principal); N17.9 Acute kidney failure, unspecified; I48.0 Paroxysmal atrial fibrillation; I50.30 Unspecified diastolic (congestive) heart failure; I11.0 Hypertensive heart disease with heart failure; I73.9 Peripheral vascular disease, unspecified; E11.9 Type 2 diabetes mellitus without complications; F03.90 Unspecified dementia, unspecified severity, without behavioral disturbance, psychotic disturbance, mood disturbance, and anxiety
CPT/HCPCS: 36415; 80048

== ENCOUNTER 2024-07-28 08:02 | Emergency (ER) | payer MEDICARE, BC, SELFPAY ==
[2024-07-28 08:08] VITALS: BP 181/84
[2024-07-28 09:40] LABS: % Basophils 0.3 % (0-2); % Eosinophils 2.6 % (0-6); % Immature Granulocytes 1.1 % (0-0.5); % Lymphocytes 17.9 % (20.5-51.1); % Monocytes 6.7 % (1.7-9.3); % Neutrophils 71.4 % (42.2-75.2); Absolute Eosinophils 0.2 10^3/uL (0-0.7); Absolute Immature Granulocytes 0.1 10^3/uL (0-0.05); Absolute Lymphocytes 1.6 10^3/uL (1.2-3.4); Absolute Monocytes 0.6 10^3/uL (0.1-0.6); Absolute Neutrophils 6.4 10^3/uL (1.4-6.5); Hematocrit 29.4 % (37.0-47.0); Hemoglobin 9.7 g/dL (12.0-16.0); Mean Corpuscular Hgb 29.6 pg (27.0-31.0); Mean Corpuscular Volume 89.6 fL (81.0-99.0); Nucleated Red Blood Cells % 0 %; Platelet Count 194 10^3/uL (130-400); Red Blood Cell Count 3.28 10^6/uL (4.20-5.40); Red Cell Dist. Width 14.4 % (11.5-14.5); White Blood Cell Count 8.9 10^3/uL (4.8-10.8)
[2024-07-28 09:52] LABS: ALT (SGPT) 13 U/L (0-35); AST (SGOT) 14 U/L (14-36); Albumin 3.4 g/dl (3.5-5.0); Alkaline Phosphatase 122 U/L (38-126); Blood Urea Nitrogen 20 mg/dl (7-17); Calcium 8.5 mg/dl (8.4-10.2); Carbon Dioxide 19 mmol/L (22-30); Chloride 107 mmol/L (98-107); Glucose 162 mg/dl (70-99); Potassium 4.4 mmol/L (3.5-5.1); Sodium 137 mmol/L (135-145); Total Bilirubin 0.8 mg/dl (0.2-1.3); Total Protein 6.2 g/dl (6.3-8.2); eGFR > 60.00
[2024-07-28 10:30] VITALS: BP 164/90; BMI 28.1
--- NOTE | 2024-07-28 11:10 | ED.GENMED ---
History of Present Illness
General
Chief Complaint: Fall
Source: patient
Exam Limitations: dementia
Time Seen by Provider: 07/28/24 09:12
History of Present Illness
History of Present Illness:
79-year-old female with history of dementia who presents after reported fall. Patient does state that she fell but states that she really is not sure what happened. She states she feels otherwise normal. He states she feels a little bit 'off',
but no pain. No focal weakness. No headache. No neck pain. No chest pain. No abdominal pain. No back pain. Patient is anticoagulated.
Past History
Past History
ED Past Medical History: Arrthythmia ( SVT, Atrial fib, ), CVA, GERD, HTN, Hypercholesterolemia, NIDDM, Psychiatric (Depression, anxiety) and Other ( Lyme's disease, insomnia, Colitis, Vertigo, Intractable vomiting, Headache, Sleep apnea, UTI, Iron
deficiency anemia, Slight Dementia, Endometriosis, )
ED Past Surgical History: Appendectomy, Cardiac (Pacemaker, Left carotid endarterectomy), Gynecological (Hysterectomy) and Tonsilectomy
Social History
Tobacco: Former smoker
Alcohol: None
Personal: ( in Adhysteria)
Living: [facility] (Adhysteria)
Family History
Family History: CAD
Phy Exam
Physical Exam
Physical Exam:
CONSTITUTIONAL Patient alert and oriented to person, Well-appearing. Vital signs reviewed.
HEAD atraumatic, normocephalic.
EYES eyelids normal to inspection, Extraocular muscles intact, Conjunctiva normal, Sclera normal.
NECK normal range of motion, Trachea midline, no jugular venous distention.
RESPIRATORY CHEST No respiratory distress noted, Chest expansion equal, Bilateral breath sounds clear.
CARDIOVASCULAR irregularly irregular
ABDOMEN abdomen nontender, Bowel sounds normal. No distention.
BACK normal inspection, no obvious deformities
UPPER EXTREMITY range of motion normal, Motor strength normal, no cyanosis, no edema.
LOWER EXTREMITY range of motion normal, Motor strength normal, no cyanosis, no edema.
NEURO Speech normal, No focal motor deficits, Cranial Nerves intact to screening exam.
SKIN skin warm, dry, and normal in color.
Course
Orders/Labs/Results
Orders:
Orders
07/28/24 08:12
Electrocardiogram (*1) Urgent
Reason for Study: Syncope
CT Head W/o Iv Contrast Urgent
Comment:
Reason For Exam: head injury
EKG- Treatment ONCE
07/28/24 09:30
Complete Blood Count/With Diff Urgent
Comprehensive Metabolic Panel Urgent
Abnormal Lab Results
07/28/24
09:30
RBC 3.28 L 10^6/uL
(4.20-5.40)
Hgb 9.7 L g/dL
(12.0-16.0)
Hct 29.4 L %
(37.0-47.0)
Abs Immat Gran (auto) 0.1 H 10^3/uL
(0-0.05)
Immature Gran % 1.1 H %
(0-0.5)
Lymphocytes % 17.9 L %
(20.5-51.1)
Carbon Dioxide 19 L mmol/L
(22-30)
BUN 20 H mg/dl
(7-17)
Glucose 162 H mg/dl
(70-99)
Total Protein 6.2 L g/dl
(6.3-8.2)
Albumin 3.4 L g/dl
(3.5-5.0)
07/28/24 09:30
07/28/24 09:30
Vital Signs
Initial and Last Documented VS:
Initial Vital Signs
Temp Pulse Resp BP Pulse Ox
98.4 F 99 18 181/84 99
07/28/24 08:08 07/28/24 08:08 07/28/24 08:08 07/28/24 08:08 07/28/24 08:08
Last Documented Vital Signs
Temp Pulse Resp BP Pulse Ox
98.4 F 96 16 164/90 99
07/28/24 08:08 07/28/24 10:30 07/28/24 10:30 07/28/24 10:30 07/28/24 10:30
MDM/Problems Addressed
MDM/Problems Addressed:
Fall, chronic A-fib, uncontrolled hypertension
*Radiology
Radiology exam reviewed: preliminary read by ED provider (No obvious intracranial hemorrhage)
*Pulse Oximetry
Patient hypoxic: no
*EKG
Interpreted by ED Provider?: Yes
Interpretation: abnormal
Rhythm: a-fib
QRS Pattern: poor R-wave progression
Ischemia: non-specific ST changes
*Facilities Specialist Interpretation
Rate: normal
Interpretation: abnormal
Rhythm: a-fib
*Critical Care Note
Total Time (30-74mins, 75-104mins- exclusive of procedures): Not Applicable
Data Reviewed
Review of Other/Old Records Reveals: Discharge Summary (Discharge summary from May 2024 reviewed)
Source: patient
Further Testing Considered But Not Given:
Consider C-spine imaging but no tenderness no pain
Patient Management
Escalation/DeEscalation of care consider admission/obs:
Unclear course of events but EKG at baseline, labs at baseline and patient appears well. Does not offer any current complaints on reevaluation. No signs of trauma on exam CT head negative. Considered admission for syncope with patient does appear
stable and is unclear whether she actually had a syncopal event or had a mechanical fall.
ED Attending Note
-
Portions of this chart may have been created with voice recognition software.� Occasional wrong word or��sound alike� substitutions may have occurred due to the inherent limitations of voice recognition software.
Discharge Plan
Departure
Patient Disposition: Home (Routine Discharge)
Date of Disposition: 07/28/24
Time of Disposition: 11:11
Patient with high blood pressure during this ER visit?: Yes
Discharge Problem:
Dementia, Uncontrolled hypertension, Fall
Instructions: Preventing falls in adults, BLOOD PRESSURE
Prescriptions:
No Action
atorvastatin 20 MG tablet
20 mg PO HS
pantoprazole 40 MG tablet,delayed release (DR/EC)
40 mg PO DAILY
Januvia 100 MG tablet
100 mg PO DAILY
methenamine hippurate 1 GRAM tablet
1 g PO BID
ferrous sulfate [iron] 325 MG tablet
325 mg PO DAILY
lisinopril 10 MG tablet
10 mg PO BID
metoprolol succinate 100 mg tablet extended release 24 hr
100 mg PO HS
metformin 1,000 mg Tablet
500 mg PO BID
calcium polycarbophil [Fiber (calcium polycarbophil)] 625 mg Tablet
625 mg PO DAILY
memantine 10 mg Tablet
10 mg PO BID
nystatin 100,000 unit/gram powder
1 applic TOPICAL BID
furosemide 20 mg tablet
40 mg PO DAILY
acetaminophen [Tylenol] 325 mg Tablet
650 mg PO Q4HPRN PRN (Reason: mild pain)
loperamide 2 mg Tablet
2 mg PO DAILYPRN PRN (Reason: diarrhea)
Rx Instructions:
take 4mg after first loose stool then 2mg aftr each subsequent episode
glimepiride 2 mg Tablet
2 mg PO DAILY
alum-mag hydroxide-simeth 200-200-20 mg/5 mL Suspension
30 ml PO BIDPRN PRN (Reason: heartburn)
sodium chloride 0.65 % Aerosol,[place]
1 spray INTRANASAL DAILYPRN PRN (Reason: dryness)
tamsulosin 0.4 mg Capsule
0.4 mg PO DAILY Qty: 10 0RF
Eliquis 2.5 mg Tablet
2.5 mg PO BID Qty: 3 0RF
Rx Instructions:
through Monday evening, then on Monday start 5mg BID
acetaminophen 325 mg Tablet
650 mg PO Q4HWA Qty: 100 0RF
oxycodone 5 mg Tablet
5 mg PO Q4HPRN PRN (Reason: severe pain) Qty: 10 0RF
Eliquis 5 MG tablet
5 mg PO BID Qty: 60 0RF
Rx Instructions:
Resume on June 09
Referrals:
UNKNOWN,NO INTERVIEW [Family Provider] -
Activity Restrictions/Additional Instructions:
Your blood pressure was elevated while in the Emergency Department, please have your doctor re-evaluate it in the next 48 hours as untreated hypertension may lead to serious complications.
Return immediately for chest pain, shortness of breath, weakness of any kind, passing out episode or any other concerns.
Interventions
Interventions:
*Risk Screen - Suicide Last Done: 07/28/24 08:08
*General Assessment Last Done: 07/28/24 08:08
*Neglect/Abuse Screening Last Done: 07/28/24 08:08
ED- Fall Risk Assessment Last Done: 07/28/24 09:47
*ED COVID-19 Vaccine History Last Done: 07/28/24 08:08
ED-Musculoskeletal Assessment Last Done: 07/28/24 09:47
ED- Neurological Assessment Last Done: 07/28/24 09:47
ED-Skin Assessment Last Done: 07/28/24 09:47
Discharge Date and Time
Print Language: IRISH
[2024-07-28 12:00] VITALS: BP 158/89
[2024-07-28 13:27] VITALS: BP 141/79
== END 2024-07-28 13:30 | disposition home or self-care (01) ==
LOC: EMR 08:02
PROVIDERS: Emergency Medicine; EMERGENCY PHYSICIAN Emergency Medicine
DX: F03.90 Unspecified dementia, unspecified severity, without behavioral disturbance, psychotic disturbance, mood disturbance, and anxiety (principal); I10 Essential (primary) hypertension; W19.XXXA Unspecified fall, initial encounter; I47.10 Supraventricular tachycardia, unspecified; I48.91 Unspecified atrial fibrillation; E11.9 Type 2 diabetes mellitus without complications; E78.00 Pure hypercholesterolemia, unspecified; F41.8 Other specified anxiety disorders; K21.9 Gastro-esophageal reflux disease without esophagitis; G47.30 Sleep apnea, unspecified; Z82.49 Family history of ischemic heart disease and other diseases of the circulatory system; Z86.73 Personal history of transient ischemic attack (TIA), and cerebral infarction without residual deficits; Z87.440 Personal history of urinary (tract) infections; Z87.891 Personal history of nicotine dependence; Z90.49 Acquired absence of other specified parts of digestive tract; Z90.710 Acquired absence of both cervix and uterus; Z95.0 Presence of cardiac pacemaker
CPT/HCPCS: 99284; 70450; 80053; 85025; 93005

== ENCOUNTER → 2024-09-13 10:31 | Outpatient (REF) | payer MEDICARE, BC, SELFPAY ==
[2024-09-13 11:13] LABS: % Basophils 0.3 % (0-2); % Eosinophils 3.7 % (0-6); % Immature Granulocytes 0.8 % (0-0.5); % Lymphocytes 20.2 % (20.5-51.1); % Monocytes 7.2 % (1.7-9.3); % Neutrophils 67.8 % (42.2-75.2); Absolute Eosinophils 0.3 10^3/uL (0-0.7); Absolute Immature Granulocytes 0.1 10^3/uL (0-0.05); Absolute Lymphocytes 1.6 10^3/uL (1.2-3.4); Absolute Monocytes 0.6 10^3/uL (0.1-0.6); Absolute Neutrophils 5.4 10^3/uL (1.4-6.5); Hematocrit 32.3 % (37.0-47.0); Hemoglobin 9.9 g/dL (12.0-16.0); Mean Corp Hgb Conc. 30.7 g/dL (33.0-37.0); Mean Corpuscular Hgb 28.2 pg (27.0-31.0); Mean Platelet Volume 10.9 fL (7.4-10.4); Nucleated Red Blood Cells % 0 %; Platelet Count 221 10^3/uL (130-400); Red Blood Cell Count 3.51 10^6/uL (4.20-5.40); Red Cell Dist. Width 15.4 % (11.5-14.5); White Blood Cell Count 7.9 10^3/uL (4.8-10.8)
[2024-09-13 11:35] LABS: Iron 42 ug/dl (37-170)
[2024-09-13 11:45] LABS: Percent Saturation 16 % (20-50); Total Iron Binding Capacity 259 ug/dl (265-497)
[2024-09-13 12:17] LABS: Vitamin B12 233 pg/ml (239-931)
[2024-09-13 13:09] LABS: Glycohemoglobin (HgbA1c) 6.7 % (4.0-5.6)
== END ==
LOC: OLABLV 10:31
PROVIDERS: ATTENDING PHYSICIAN Nurse Practitioner Gerontology
DX: J44.9 Chronic obstructive pulmonary disease, unspecified (principal); E53.8 Deficiency of other specified B group vitamins; E11.9 Type 2 diabetes mellitus without complications; D50.9 Iron deficiency anemia, unspecified
CPT/HCPCS: 36415; 82607; 82728; 83036; 83540; 83550; 85025

== ENCOUNTER → 2024-11-27 11:14 | Outpatient (REF) | payer MEDICARE, BC, SELFPAY ==
[2024-11-27 12:39] LABS: % Basophils 0.3 % (0-2); % Eosinophils 0.2 % (0-6); % Lymphocytes 16.4 % (20.5-51.1); % Neutrophils 76.1 % (42.2-75.2); Absolute Immature Granulocytes 0.1 10^3/uL (0-0.05); Absolute Lymphocytes 1.6 10^3/uL (1.2-3.4); Absolute Monocytes 0.6 10^3/uL (0.1-0.6); Absolute Neutrophils 7.3 10^3/uL (1.4-6.5); Hematocrit 33.9 % (37.0-47.0); Hemoglobin 10.6 g/dL (12.0-16.0); Mean Corp Hgb Conc. 31.3 g/dL (33.0-37.0); Mean Corpuscular Volume 89.4 fL (81.0-99.0); Nucleated Red Blood Cells % 0 %; Platelet Count 215 10^3/uL (130-400); Red Blood Cell Count 3.79 10^6/uL (4.20-5.40); Red Cell Dist. Width 14.8 % (11.5-14.5); White Blood Cell Count 9.6 10^3/uL (4.8-10.8)
[2024-11-27 13:17] LABS: ALT (SGPT) 16 U/L (0-35); AST (SGOT) 15 U/L (14-36); Albumin 4.2 g/dl (3.5-5.0); Alkaline Phosphatase 93 U/L (38-126); Blood Urea Nitrogen 31 mg/dl (7-17); Calcium 8.9 mg/dl (8.4-10.2); Carbon Dioxide 24 mmol/L (22-30); Chloride 101 mmol/L (98-107); Free T4 1.35 ng/dl (0.78-2.19); Glucose 188 mg/dl (70-99); Iron 53 ug/dl (37-170); Potassium 4.3 mmol/L (3.5-5.1); Sodium 137 mmol/L (135-145); Total Bilirubin 0.7 mg/dl (0.2-1.3); Total Protein 6.8 g/dl (6.3-8.2); eGFR 56.95
[2024-11-27 13:26] LABS: Percent Saturation 18 % (20-50); Total Iron Binding Capacity 293 ug/dl (265-497)
[2024-11-27 13:31] LABS: TSH 1.47 uIU/ml (0.47-4.68)
== END ==
LOC: OLABLV 11:14
PROVIDERS: ATTENDING PHYSICIAN Nurse Practitioner Gerontology
DX: D50.9 Iron deficiency anemia, unspecified (principal); I50.30 Unspecified diastolic (congestive) heart failure; Z13.29 Encounter for screening for other suspected endocrine disorder
CPT/HCPCS: 36415; 80053; 83540; 83550; 84439; 84443; 85025

== ENCOUNTER 2025-02-14 20:10 | Emergency (ER) | payer MEDICARE, BC, SELFPAY ==
[2025-02-14 20:13] VITALS: BP 132/61
[2025-02-14 20:39] LABS: Hematocrit 31.4 % (37.0-47.0); Hemoglobin 10.1 g/dL (12.0-16.0); Mean Corp Hgb Conc. 32.2 g/dL (33.0-37.0); Mean Corpuscular Volume 88.0 fL (81.0-99.0); Nucleated Red Blood Cells % 0 %; Platelet Count 183 10^3/uL (130-400); Red Cell Dist. Width 15.1 % (11.5-14.5)
[2025-02-14 20:51] LABS: ALT (SGPT) 13 U/L (0-35); AST (SGOT) 14 U/L (14-36); Albumin 3.9 g/dl (3.5-5.0); Alkaline Phosphatase 100 U/L (38-126); Blood Urea Nitrogen 32 mg/dl (7-17); Calcium 8.4 mg/dl (8.4-10.2); Carbon Dioxide 26 mmol/L (22-30); Chloride 104 mmol/L (98-107); Glucose 236 mg/dl (70-99); Potassium 4.2 mmol/L (3.5-5.1); Sodium 135 mmol/L (135-145); Total Protein 7.0 g/dl (6.3-8.2); eGFR 41.57
[2025-02-14 20:54] LABS: COVID-19 Antigen Negative (Negative)
[2025-02-14 23:10] VITALS: BMI 26.9
[2025-02-14 23:13] VITALS: BP 150/69
--- NOTE | 2025-02-14 23:42 | ED.GENMED ---
History of Present Illness
General
Chief Complaint: Weakness
Time Seen by Provider: 02/14/25 23:06
History of Present Illness
History of Present Illness:
79-year-old female presents the emergency department from [facility] for general malaise. She denies other complaints. She states to me that she feels fine and does not want to be here anymore. Apparently she was sent from her facility due
to facial and lower extremity swelling, was apparently started on Lasix yesterday for this according to the patient's daughter. Patient can provide essentially no history secondary to dementia.
Past History
Past History
ED Past Medical History: Arrthythmia ( SVT, Atrial fib, ), CVA, GERD, HTN, Hypercholesterolemia, NIDDM, Psychiatric (Depression, anxiety) and Other ( Lyme's disease, insomnia, Colitis, Vertigo, Intractable vomiting, Headache, Sleep apnea, UTI, Iron
deficiency anemia, Slight Dementia, Endometriosis, )
ED Past Surgical History: Appendectomy, Cardiac (Pacemaker, Left carotid endarterectomy), Gynecological (Hysterectomy) and Tonsilectomy
Social History
Tobacco: Former smoker
Alcohol: None
Personal: ( in [facility])
Living: custodial ([facility])
Family History
Family History: CAD
Review of Systems
Review of Systems
Allergies reviewed?: Yes
All Other Systems: ROS reviewed and negative except as documented in HPI and ROS
Phy Exam
Physical Exam
Physical Exam:
GEN: Well appearing, NAD, WDWN
HEENT: Oral mucosa moist, no scleral icterus
Cardiac: Regular rate and rhythm, no murmur
Lung: No respiratory distress, no tachypnea, lungs clear to auscultation bilateral
MSK: No gross deformity or injuries
Skin: Good color, no pallor or jaundice, no rashes
Neuro: AO x3, moves all extremities freely
Psych: Calm, cooperative
Course
Orders/Labs/Results
Orders:
Orders
02/14/25 20:29
Complete Blood Count/With Diff Urgent
Comprehensive Metabolic Panel Urgent
02/14/25 20:31
COVID-19 Antigen Urgent
Source: Nasal Swab
Influenza A+B Rapid Molecular Urgent
LOREN Source: Nasal Swab
Specimen Description:
02/14/25 23:42
Urinalysis Reflex To Culture Urgent
Date Specimen was Collected: 02/15/25
Time Specimen was Collected: 00:38
02/15/25 00:37
CR Chest - 2 Views Urgent
Comment:
Reason For Exam: cough
02/15/25 00:56
Urine Microscopic Reflex Cult Urgent
Urine Culture Urgent
LOREN Source: U
Specimen Description:
Date Specimen was Collected: 02/15/25
Time Specimen was Collected: 00:38
02/15/25 01:34
Cefdinir [Omnicef] 300 mg PO NOW STA
Abnormal Lab Results
02/14/25 02/15/25
20:29 00:56
RBC 3.57 L 10^6/uL
(4.20-5.40)
Hgb 10.1 L g/dL
(12.0-16.0)
Hct 31.4 L %
(37.0-47.0)
MCHC 32.2 L g/dL
(33.0-37.0)
RDW 15.1 H %
(11.5-14.5)
Abs Immat Gran (auto) 0.1 H 10^3/uL
(0-0.05)
Absolute Neuts (auto) 6.7 H 10^3/uL
(1.4-6.5)
Absolute Monos (auto) 0.7 H 10^3/uL
(0.1-0.6)
Immature Gran % 0.9 H %
(0-0.5)
Lymphocytes % 15.0 L %
(20.5-51.1)
BUN 32 H mg/dl
(7-17)
Creatinine 1.3 H mg/dL
(0.6-1.0)
Glucose 236 H mg/dl
(70-99)
Ur Occult Blood Reflex 1+ A
(Negative)
Leukocyte Esterase Rfl 3+ A
(Negative)
Urine RBC 16-20 A /HPF
(0-2)
Urine WBC (Reflex) 30-40 A /HPF
(0-5)
Urine Bacteria (Reflex) Moderate A
(Negative)
Urine Albumin (Reflex) 1+ A
(Neg - Trace)
02/14/25 20:29
02/14/25 20:29
Vital Signs
Initial and Last Documented VS:
Initial Vital Signs
Temp Pulse Resp BP Pulse Ox
98.5 F 93 18 132/61 98
02/14/25 20:13 02/14/25 20:13 02/14/25 20:13 02/14/25 20:13 02/14/25 20:13
Last Documented Vital Signs
Temp Pulse Resp BP Pulse Ox
98.5 F 97 15 150/69 98
02/14/25 20:13 02/15/25 00:30 02/14/25 23:45 02/14/25 23:13 02/14/25 23:42
MDM/Problems Addressed
MDM/Problems Addressed:
Patient's labs are reassuring however urinalysis is suspicious for acute UTI which may be causing her malaise. Additionally she has noted to have a left pleural effusion and cardiomegaly on chest x-ray however does not appear grossly volume
overloaded. She was newly initiated on Lasix and hopefully this will provide some benefit. Will cover with antibiotics for UTI
*Pulse Oximetry
SaO2: 98
Patient hypoxic: no
*Critical Care Note
Total Time (30-74mins, 75-104mins- exclusive of procedures): Not Applicable
ED Attending Note
-
Portions of this chart may have been created with voice recognition software.� Occasional wrong word or��sound alike� substitutions may have occurred due to the inherent limitations of voice recognition software.
Discharge Plan
Departure
Patient Disposition: Home (Routine Discharge)
Date of Disposition: 02/15/25
Time of Disposition: 01:37
Patient with high blood pressure during this ER visit?: No
Discharge Problem:
Urinary tract infection, Pleural effusion, left
Instructions: Pleural effusion
Prescriptions:
New
cefdinir 300 mg capsule
300 mg PO BID 7 Days Qty: 14 0RF
No Action
atorvastatin 20 MG tablet
20 mg PO HS
pantoprazole 40 MG tablet,delayed release (DR/EC)
40 mg PO DAILY
Januvia 100 MG tablet
100 mg PO DAILY
methenamine hippurate 1 GRAM tablet
1 g PO BID
ferrous sulfate [iron] 325 MG tablet
325 mg PO DAILY
lisinopril 10 MG tablet
10 mg PO BID
metoprolol succinate 100 mg tablet extended release 24 hr
100 mg PO HS
metformin 1,000 mg Tablet
500 mg PO BID
calcium polycarbophil [Fiber (calcium polycarbophil)] 625 mg Tablet
625 mg PO DAILY
memantine 10 mg Tablet
10 mg PO BID
nystatin 100,000 unit/gram powder
1 applic TOPICAL BID
furosemide 20 mg tablet
40 mg PO DAILY
acetaminophen [Tylenol] 325 mg Tablet
650 mg PO Q4HPRN PRN (Reason: mild pain)
loperamide 2 mg Tablet
2 mg PO DAILYPRN PRN (Reason: diarrhea)
Rx Instructions:
take 4mg after first loose stool then 2mg aftr each subsequent episode
glimepiride 2 mg Tablet
2 mg PO DAILY
alum-mag hydroxide-simeth 200-200-20 mg/5 mL Suspension
30 ml PO BIDPRN PRN (Reason: heartburn)
sodium chloride 0.65 % Aerosol,[place]
1 spray INTRANASAL DAILYPRN PRN (Reason: dryness)
tamsulosin 0.4 mg Capsule
0.4 mg PO DAILY Qty: 10 0RF
Eliquis 2.5 mg Tablet
2.5 mg PO BID Qty: 3 0RF
Rx Instructions:
through Monday evening, then on Monday start 5mg BID
acetaminophen 325 mg Tablet
650 mg PO Q4HWA Qty: 100 0RF
oxycodone 5 mg Tablet
5 mg PO Q4HPRN PRN (Reason: severe pain) Qty: 10 0RF
Eliquis 5 MG tablet
5 mg PO BID Qty: 60 0RF
Rx Instructions:
Resume on June 09
Referrals:
Vivian Rivera CRNP [Family Provider, General]
Activity Restrictions/Additional Instructions:
Jaylin has evidence of a urinary tract infection will be treated with antibiotics. She also has a pleural effusion in the left lung that will require repeat chest x-ray in 1 to 2 weeks for reassessment
Interventions
Interventions:
*Risk Screen - Suicide Last Done: 02/14/25 20:14
*General Assessment Last Done: 02/14/25 20:16
*Neglect/Abuse Screening Last Done: 02/14/25 20:14
*ED- Fall Risk Assessment Last Done: 02/14/25 23:10
*ED COVID-19 Vaccine History Last Done: 02/14/25 23:10
ED- Cardiac Assessment Last Done: 02/15/25 00:34
ED- Neurological Assessment Last Done: 02/15/25 00:34
ED- Pulmonary Assessment Last Done: 02/15/25 00:34
Discharge Date and Time
Print Language: BRUNEIAN
[2025-02-15 01:08] LABS: Urine Character Slightly Cloudy (Clear)
[2025-02-15 01:33] LABS: Urine Squamous Cell >30 /LPF (Few)
[2025-02-15 01:34] LABS: Urine Red Blood Cell 16-20 /HPF (0-2); Urine White Cell 30-40 /HPF (0-5)
[2025-02-15] MEDS: OMNICEF 300 MG PO (01:45)
[2025-02-15 02:13] VITALS: BP 147/72
== END 2025-02-15 02:18 | disposition home or self-care (01) ==
LOC: EMR 20:10
PROVIDERS: Emergency Medicine; Physician Assistant; EMERGENCY PHYSICIAN Emergency Medicine; FAMILY PHYSICIAN Nurse Practitioner Gerontology
DX: N39.0 Urinary tract infection, site not specified (principal); J90 Pleural effusion, not elsewhere classified; E11.9 Type 2 diabetes mellitus without complications; E78.00 Pure hypercholesterolemia, unspecified; F03.90 Unspecified dementia, unspecified severity, without behavioral disturbance, psychotic disturbance, mood disturbance, and anxiety; G47.30 Sleep apnea, unspecified; Z95.0 Presence of cardiac pacemaker; Z86.73 Personal history of transient ischemic attack (TIA), and cerebral infarction without residual deficits; Z87.891 Personal history of nicotine dependence
CPT/HCPCS: 99284; 71046; 80053; 81003; 81015; 85025; 87086; 87502; 87811

== ENCOUNTER → 2025-02-26 10:56 | Outpatient (REF) | payer MEDICARE, BC, SELFPAY ==
[2025-02-26 11:57] LABS: Blood Urea Nitrogen 28 mg/dl (7-17); Calcium 8.8 mg/dl (8.4-10.2); Carbon Dioxide 26 mmol/L (22-30); Chloride 104 mmol/L (98-107); Glucose 190 mg/dl (70-99); Potassium 4.5 mmol/L (3.5-5.1); Sodium 139 mmol/L (135-145); eGFR 41.57
== END ==
LOC: OLABLV 10:56
PROVIDERS: ATTENDING PHYSICIAN Nurse Practitioner Gerontology
DX: N18.31 Chronic kidney disease, stage 3a (principal)
CPT/HCPCS: 36415; 80048

== ENCOUNTER → 2025-03-19 10:16 | Outpatient (REF) | payer MEDICARE, BC, SELFPAY ==
[2025-03-19 11:19] LABS: Blood Urea Nitrogen 39 mg/dl (7-17); Calcium 9.0 mg/dl (8.4-10.2); Carbon Dioxide 22 mmol/L (22-30); Chloride 104 mmol/L (98-107); Glucose 169 mg/dl (70-99); Potassium 4.3 mmol/L (3.5-5.1); Sodium 137 mmol/L (135-145); eGFR 45.76
[2025-03-19 11:57] LABS: Glycohemoglobin (HgbA1c) 8.5 % (4.0-5.6)
== END ==
LOC: OLABLV 10:16
PROVIDERS: ATTENDING PHYSICIAN Nurse Practitioner Gerontology
DX: Z79.899 Other long term (current) drug therapy (principal); N18.31 Chronic kidney disease, stage 3a; E11.59 Type 2 diabetes mellitus with other circulatory complications
CPT/HCPCS: 36415; 80048; 83036

== ENCOUNTER 2025-04-21 13:41 | Emergency (ER) | payer MEDICARE, BC, SELFPAY ==
[2025-04-21 13:42] VITALS: BP 164/71
--- NOTE | 2025-04-21 16:27 | ED.GENMED ---
History of Present Illness
General
Chief Complaint: Fall
Source: patient and fpc
Exam Limitations: dementia
Time Seen by Provider: 04/21/25 15:54
Nursing documentation reviewed up to this point in time: agreed with
History of Present Illness
History of Present Illness:
Patient is a 80-year-old female with history atrial fibrillation on Eliquis, hypertension, hyperlipidemia, insulin-dependent diabetes who presents to the emergency department after unwitnessed fall. Patient unable to contribute much to history
given dementia. Patient reports pain in her left shoulder, left hip, and left ankle. She denies any current headache or neck pain. She denies any chest pain or shortness of breath. She has no recollection of fall.
I did speak with one of the nurses at patient's living facility who state that she was found on the ground in her bedroom. The fall was unwitnessed and they are unsure how long patient was lying on the ground. They state that she was complaining
of right hip pain immediately following fall. They are unsure if she struck her head. However they state when they found her in the bedroom she was conscious. No urinary or bowel incontinence.
Past History
Past History
ED Past Medical History: Arrthythmia ( SVT, Atrial fib, ), CVA, GERD, HTN, Hypercholesterolemia, NIDDM, Psychiatric (Depression, anxiety) and Other ( Lyme's disease, insomnia, Colitis, Vertigo, Intractable vomiting, Headache, Sleep apnea, UTI, Iron
deficiency anemia, Slight Dementia, Endometriosis, )
ED Past Surgical History: Appendectomy, Cardiac (Pacemaker, Left carotid endarterectomy), Gynecological (Hysterectomy) and Tonsilectomy
Social History
Tobacco: Former smoker
Alcohol: None
Personal: ( in [place])
Living: fpc ([facility])
Family History
Family History: CAD
Review of Systems
Review of Systems
Allergies reviewed?: Yes
All Other Systems: ROS reviewed and negative except as documented in HPI and ROS
Phy Exam
Physical Exam
Physical Exam:
GENERAL: No acute distress
HEENT: atraumatic, extraocular muscles intact, no signs of entrapment, dentition intact, no other obvious trauma
NECK: no midline tenderness, normal range of motion, no other obvious trauma
BACK: no midline tenderness, no other obvious trauma
CHEST: no tenderness, no flail segment, no subcutaneous emphysema, no other obvious trauma
LUNGS: clear to auscultation bilaterally
CARDIOVASCULAR: regular rate and rhythm
ABDOMEN: soft, non-tender, no masses, no other obvious trauma
PELVIS: stable, no obvious injury
EXTREMITIES: Patient has reproducible tenderness of left shoulder, left hip over greater trochanter, and left medial malleolus. There is no obvious deformity or areas of swelling and left lower extremity when she has full range of motion in left
ankle, left knee, and left hip without pain. No reproducible tenderness in right upper or lower extremities. Distal pulses intact with normal sensation
NEUROLOGIC: awake, alert x [address], not time, no focal deficits
Course
Orders/Labs/Results
Orders:
Orders
04/21/25 13:44
CT Head W/o Iv Contrast Urgent
Comment:
Reason For Exam: fall, denies head or neck pain,
Shoulder, Left, Trauma CR [CR Shoulder, Trauma - Left] Urgent
Comment:
Reason For Exam: fall, left shoulder pain
04/21/25 16:34
Ankle, left 3 view CR [CR Ankle - Left Min 3 Views ] Urgent
Comment:
Reason For Exam: fall
Hips, Bilat 5 view W/AP Pelvis [CR Hips RONY w/wo Pel Min 5 Vw*] Urgent
Comment:
Reason For Exam: fall
Include a pelvis x-ray?: Yes
04/21/25 16:35
Electrocardiogram (*1) Urgent
Reason for Study: Fatigue / Weakness
EKG- Treatment ONCE
Acetaminophen [Tylenol] 650 mg PO NOW STA
04/21/25 17:02
pacemaker [Interrogate Pacemaker- Treatment] ONCE
04/21/25 17:20
Basic Metabolic Panel Urgent
CPK [Creatine Phosphokinase] Urgent
Complete Blood Count/With Diff Urgent
04/21/25 19:15
Geovanny Wrap Left-Treatment ONCE
Abnormal Lab Results
04/21/25
17:20
RBC 3.96 L 10^6/uL
(4.20-5.40)
Hgb 11.1 L g/dL
(12.0-16.0)
Hct 34.6 L %
(37.0-47.0)
MCHC 32.1 L g/dL
(33.0-37.0)
RDW 14.8 H %
(11.5-14.5)
MPV 11.2 H fL
(7.4-10.4)
Abs Immat Gran (auto) 0.1 H 10^3/uL
(0-0.05)
Immature Gran % 1.2 H %
(0-0.5)
Lymphocytes % 19.5 L %
(20.5-51.1)
Sodium 134 L mmol/L
(135-145)
BUN 35 H mg/dl
(7-17)
Creatinine 1.4 H mg/dL
(0.6-1.0)
Glucose 262 H mg/dl
(70-99)
04/21/25 17:20
04/21/25 17:20
Vital Signs
Initial and Last Documented VS:
Initial Vital Signs
Temp Pulse Resp BP Pulse Ox
98.4 F 97 18 164/71 99
04/21/25 13:42 04/21/25 13:42 04/21/25 13:42 04/21/25 13:42 04/21/25 13:42
Last Documented Vital Signs
Temp Pulse Resp BP Pulse Ox
98.1 F 82 16 150/83 98
04/21/25 21:25 04/21/25 21:25 04/21/25 21:25 04/21/25 21:25 04/21/25 21:25
MDM/Problems Addressed
Differential Diagnosis Includes:
Not limited to: Mechanical fall, hip fracture, pelvic fracture, shoulder contusion, acute dehydration, cardiac arrhythmia, syncope, etc.
MDM/Problems Addressed:
80-year-old female presenting from nursing facility after unwitnessed fall. She is unable to contribute much history given dementia. Unknown head strike. Vitals and exam as above. She does not appear to have any focal neurologic deficits. No
cervical spine tenderness. No evidence of chest or abdominal trauma. Bilateral upper and lower extremities with full range of motion, no obvious deformities. She does have mild tenderness in both left ankle and left hip. Cardio/pulmonary assessment
unremarkable.
Differential as above. Possible unwitnessed mechanical fall. Unable to exclude potential syncopal event or arrythmia.
Head CT and shoulder x-ray performed prior to my evaluation without acute findings. Given unwitnessed nature of fall � will obtain basic lab work, EKG, interrogate pacemaker. Will check x-ray left ankle and bilateral hips.
Update: x-ray imaging of hips reviewed by me without acute fracture. Left ankle with soft tissue swelling however no identifiable fracture. Possible sprain. Labs reveal chronic renal insufficiency � stable. EKG reveals rate controlled atrial
fibrillation without acute ischemic changes. Pacemaker report without acute abnormalities or recent arrhythmias.
Ultimately � workup negative. She is stable w/ no complaints. She is ambulatory utilizing walker, which is her baseline. Feel stable for discharge home. Will geovanny wrap left ankle.
Chronic conditions affecting care:
Atrial fibrillation on Eliquis
Acute Exacerbation and/or Progression of Chronic Illness:
N/A
*Radiology
Radiology exam reviewed: radiology read reviewed
*Pulse Oximetry
SaO2: 99
Oxygen Mode of Delivery: Room air
Patient hypoxic: no
*EKG
Interpreted by ED Provider?: Yes
EKG Intrepretation Date: 04/21/25
Interpretation: abnormal
Comparison EKG: changes noted
Heart Rate: 86
Rate: normal
Rhythm: a-fib
[place]: normal axis
Interval: normal QT interval
QRS Pattern: low voltage
Ischemia: non-specific ST changes
*Quality Systems Specialist Interpretation
Rate: Quality Systems Specialist- N/A
*Critical Care Note
Total Time (30-74mins, 75-104mins- exclusive of procedures): Not Applicable
ED Attending Note
-
Portions of this chart may have been created with voice recognition software.� Occasional wrong word or��sound alike� substitutions may have occurred due to the inherent limitations of voice recognition software.
Discharge Plan
Departure
Patient Disposition: Home (Routine Discharge)
Date of Disposition: 04/21/25
Time of Disposition: 19:16
Patient with high blood pressure during this ER visit?: Yes
Condition: Good
Discharge Problem:
Unwitnessed fall, Renal insufficiency, Left ankle injury
Instructions: Preventing falls in adults, BLOOD PRESSURE
Prescriptions:
No Action
atorvastatin 20 MG tablet
20 mg PO HS
pantoprazole 40 MG tablet,delayed release (DR/EC)
40 mg PO DAILY
Januvia 100 MG tablet
100 mg PO DAILY
methenamine hippurate 1 GRAM tablet
1 g PO BID
ferrous sulfate [iron] 325 MG tablet
325 mg PO DAILY
lisinopril 10 MG tablet
10 mg PO BID
metoprolol succinate 100 mg tablet extended release 24 hr
100 mg PO HS
metformin 1,000 mg Tablet
500 mg PO BID
calcium polycarbophil [Fiber (calcium polycarbophil)] 625 mg Tablet
625 mg PO DAILY
memantine 10 mg Tablet
10 mg PO BID
nystatin 100,000 unit/gram powder
1 applic TOPICAL BID
furosemide 20 mg tablet
40 mg PO DAILY
acetaminophen [Tylenol] 325 mg Tablet
650 mg PO Q4HPRN PRN (Reason: mild pain)
loperamide 2 mg Tablet
2 mg PO DAILYPRN PRN (Reason: diarrhea)
Rx Instructions:
take 4mg after first loose stool then 2mg aftr each subsequent episode
glimepiride 2 mg Tablet
2 mg PO DAILY
alum-mag hydroxide-simeth 200-200-20 mg/5 mL Suspension
30 ml PO BIDPRN PRN (Reason: heartburn)
sodium chloride 0.65 % Aerosol,[place]
1 spray INTRANASAL DAILYPRN PRN (Reason: dryness)
tamsulosin 0.4 mg Capsule
0.4 mg PO DAILY Qty: 10 0RF
Eliquis 2.5 mg Tablet
2.5 mg PO BID Qty: 3 0RF
Rx Instructions:
through Monday evening, then on Monday start 5mg BID
acetaminophen 325 mg Tablet
650 mg PO Q4HWA Qty: 100 0RF
oxycodone 5 mg Tablet
5 mg PO Q4HPRN PRN (Reason: severe pain) Qty: 10 0RF
Eliquis 5 MG tablet
5 mg PO BID Qty: 60 0RF
Rx Instructions:
Resume on June 09
cefdinir 300 mg capsule
300 mg PO BID 7 Days Qty: 14 0RF
Referrals:
UNKNOWN - PT DOES,NOT KNOW [Family Provider]
Activity Restrictions/Additional Instructions:
RETURN TO THE EMERGENCY DEPARTMENT WITH ANY CHANGES IN MENTAL STATUS, HEADACHE OR NECK PAIN, INABILITY TO AMBULATE, DIZZINESS/LIGHTHEADEDNESS OR RECURRENT FALLS, WORSENING IN CURRENT SYMPTOMS, OR ANY OTHER CONCERNS
- As discussed�your imaging showed no evidence of acute traumatic injuries today. You were noted to have mild swelling of your left ankle�you may have sustained a mild ankle sprain. Continue to ice, elevate and take Tylenol as needed for pain.
- Your kidney function was mildly elevated in the Emergency Department and your glucose was high. Please have this rechecked with your primary care doctor ensure trying down. Stay well-hydrated take medication as prescribed
- Please follow-up with your primary care provider for further evaluation/management to ensure that your symptoms are improving
Monitor symptoms closely and return to the emergency department with any acute worsening/new symptoms or any other concerns
Interventions
Interventions:
*Risk Screen - Suicide Last Done: 04/21/25 21:27
*General Assessment Last Done: 04/21/25 13:42
*Neglect/Abuse Screening Last Done: 04/21/25 13:42
*ED- Fall Risk Assessment Last Done: 04/21/25 21:27
*ED COVID-19 Vaccine History Last Done: 04/21/25 21:27
*Nursing Disposition Last Done: 04/21/25 21:25
ED-Musculoskeletal Assessment Last Done: 04/21/25 18:05
ED- Neurological Assessment Last Done: 04/21/25 18:04
Discharge Date and Time
Discharge Date/Time: 04/21/25 21:27
Print Language: PERSIAN
[2025-04-21 17:36] LABS: Hematocrit 34.6 % (37.0-47.0); Hemoglobin 11.1 g/dL (12.0-16.0); Mean Corp Hgb Conc. 32.1 g/dL (33.0-37.0); Mean Corpuscular Volume 87.4 fL (81.0-99.0); Nucleated Red Blood Cells % 0 %; Platelet Count 207 10^3/uL (130-400); Red Cell Dist. Width 14.8 % (11.5-14.5)
[2025-04-21 17:48] LABS: Blood Urea Nitrogen 35 mg/dl (7-17); Calcium 8.9 mg/dl (8.4-10.2); Carbon Dioxide 28 mmol/L (22-30); Chloride 99 mmol/L (98-107); Glucose 262 mg/dl (70-99); Potassium 4.4 mmol/L (3.5-5.1); Sodium 134 mmol/L (135-145)
[2025-04-21 17:49] LABS: eGFR 37.80
[2025-04-21 18:00] VITALS: BP 151/93; BMI 30.1
[2025-04-21] MEDS: TYLENOL 650 MG PO (18:01)
[2025-04-21 21:25] VITALS: BP 150/83
== END 2025-04-21 21:27 | disposition home or self-care (01) ==
LOC: EMR 13:41
PROVIDERS: Physician Assistant; EMERGENCY PHYSICIAN Emergency Medicine
DX: E11.22 Type 2 diabetes mellitus with diabetic chronic kidney disease (principal); I12.9 Hypertensive chronic kidney disease with stage 1 through stage 4 chronic kidney disease, or unspecified chronic kidney disease; N18.9 Chronic kidney disease, unspecified; S99.912A Unspecified injury of left ankle, initial encounter; W19.XXXA Unspecified fall, initial encounter; Y92.122 Bedroom in nursing home as the place of occurrence of the external cause; F03.90 Unspecified dementia, unspecified severity, without behavioral disturbance, psychotic disturbance, mood disturbance, and anxiety; I48.91 Unspecified atrial fibrillation; E78.00 Pure hypercholesterolemia, unspecified; G47.30 Sleep apnea, unspecified; K21.9 Gastro-esophageal reflux disease without esophagitis; F32.A Depression, unspecified; F41.9 Anxiety disorder, unspecified; Z79.01 Long term (current) use of anticoagulants; Z79.84 Long term (current) use of oral hypoglycemic drugs; Z86.73 Personal history of transient ischemic attack (TIA), and cerebral infarction without residual deficits; Z95.0 Presence of cardiac pacemaker; Z87.891 Personal history of nicotine dependence; Z82.49 Family history of ischemic heart disease and other diseases of the circulatory system
CPT/HCPCS: 99284; 93288; 70450; 73030; 73523; 73610; 80048; 82550; 85025; 93005

== ENCOUNTER → 2025-06-11 12:16 | Outpatient (REF) | payer MEDICARE, BC, SELFPAY ==
[2025-06-11 12:48] LABS: Blood Urea Nitrogen 30 mg/dl (7-17); Calcium 9.1 mg/dl (8.4-10.2); Carbon Dioxide 31 mmol/L (22-30); Chloride 97 mmol/L (98-107); Glucose 183 mg/dl (70-99); Potassium 4.2 mmol/L (3.5-5.1); Sodium 133 mmol/L (135-145); eGFR 45.48
== END ==
LOC: OLABLV 12:16
PROVIDERS: ATTENDING PHYSICIAN Nurse Practitioner Gerontology
DX: S72.142D Displaced intertrochanteric fracture of left femur, subsequent encounter for closed fracture with routine healing (principal); N17.9 Acute kidney failure, unspecified; I48.0 Paroxysmal atrial fibrillation; I50.30 Unspecified diastolic (congestive) heart failure; I11.0 Hypertensive heart disease with heart failure; I73.9 Peripheral vascular disease, unspecified; E11.9 Type 2 diabetes mellitus without complications; F03.90 Unspecified dementia, unspecified severity, without behavioral disturbance, psychotic disturbance, mood disturbance, and anxiety
CPT/HCPCS: 36415; 80048

== ENCOUNTER 2025-06-19 13:27 | Emergency (ER) | payer BC, MEDICARE, SELFPAY ==
[2025-06-19 13:33] VITALS: BP 134/61
--- NOTE | 2025-06-19 13:46 | ED.GENMED ---
History of Present Illness
General
Chief Complaint: Fainting/Passed Out
Source: patient and family
Exam Limitations: none
Time Seen by Provider: 06/19/25 13:38
History of Present Illness
History of Present Illness:
See MDM
Past History
Past History
ED Past Medical History: Arrthythmia ( SVT, Atrial fib, ), CVA, GERD, HTN, Hypercholesterolemia, NIDDM, Psychiatric (Depression, anxiety) and Other ( Lyme's disease, insomnia, Colitis, Vertigo, Intractable vomiting, Headache, Sleep apnea, UTI, Iron
deficiency anemia, Slight Dementia, Endometriosis, )
ED Past Surgical History: Appendectomy, Cardiac (Pacemaker, Left carotid endarterectomy), Gynecological (Hysterectomy) and Tonsilectomy
Social History
Tobacco: Former smoker
Alcohol: None
Personal: ( in [place])
Living: [facility] ([employer])
Family History
Family History: CAD
Phy Exam
Physical Exam
Physical Exam:
See MDM
Course
Orders/Labs/Results
Orders:
Orders
06/19/25 13:38
Electrocardiogram (*1) Urgent
Reason for Study: Syncope
EKG- Treatment ONCE
06/19/25 13:44
CR Chest - 2 Views Urgent
Comment:
Reason For Exam: sob, chocking episode
06/19/25 13:45
EKG- Treatment ONCE
06/19/25 13:49
Complete Blood Count/With Diff Urgent
Comprehensive Metabolic Panel Urgent
Troponin I Urgent
Abnormal Lab Results
06/19/25
13:49
RBC 4.00 L 10^6/uL
(4.20-5.40)
Hgb 11.4 L g/dL
(12.0-16.0)
Hct 34.4 L %
(37.0-47.0)
MPV 10.5 H fL
(7.4-10.4)
Abs Immat Gran (auto) 0.1 H 10^3/uL
(0-0.05)
Absolute Monos (auto) 1.0 H 10^3/uL
(0.1-0.6)
Immature Gran % 1.1 H %
(0-0.5)
Monocytes % 10.3 H %
(1.7-9.3)
Sodium 129 L mmol/L
(135-145)
Chloride 96 L mmol/L
(98-107)
BUN 32 H mg/dl
(7-17)
Creatinine 1.5 H mg/dL
(0.6-1.0)
Glucose 279 H mg/dl
(70-99)
06/19/25 13:49
06/19/25 13:49
Vital Signs
Initial and Last Documented VS:
Initial Vital Signs
Temp Pulse Resp BP Pulse Ox
97.7 F 96 16 134/61 98
06/19/25 13:33 06/19/25 13:33 06/19/25 13:33 06/19/25 13:33 06/19/25 13:33
Last Documented Vital Signs
Temp Pulse Resp BP Pulse Ox
97.7 F 85 16 139/70 97
06/19/25 13:33 06/19/25 15:03 06/19/25 16:42 06/19/25 16:42 06/19/25 16:42
MDM/Problems Addressed
Differential Diagnosis Includes:
Note:
CHIEF COMPLAINT(S)
Feeling of exhaustion and transient difficulty swallowing.
HISTORY OF PRESENT ILLNESS
The patient is an 80-year-old female with a history of previous stroke, presenting today with sudden difficulty swallowing and extreme fatigue. She denies any recent headache or vomiting. It is not certain if the pt was eating at the time when the
difficulty swallowing occurred. She reports feeling better now, but continues to feel exhausted. The patient has had a similar episode in the past, described as a prior stroke. Currently, she is on apixaban. There is no report of headache, chest
pain, difficulty breathing, or seizure activity, such as tongue biting or incontinence.
CHRONIC MEDICAL CONDITIONS SIGNIFICANTLY AFFECTING CARE
Chronic conditions affecting care include a history of stroke.
PHYSICAL EXAM
General: Alert, no acute distress.
Skin: Warm, dry.
Head: Normocephalic, atraumatic
Neck: Appears supple, trachea midline.
Eyes, Ears, Nose, Mouth, and Throat: Moist mucous membranes
Cardiovascular: No signs of cyanosis. Regular rate and rhythm
Respiratory: Respirations are non-labored. Lungs clear
Abdomen: Non-distended
Musculoskeletal: No deformities
Neurological: No focal neurological deficit observed. No focal deficits
Psychiatric: Cooperative, appropriate mood and affect.
PLAN
- Perform a chest X-ray to check for any signs of aspiration.
- Complete basic laboratory tests to evaluate overall health status.
DIFFERENTIAL DIAGNOSIS
The Differential Diagnosis includes, in no particular order and is not limited to:
- Transient ischemic attack (TIA)
- Acute stroke
- Aspiration pneumonia
- Seizure
- Medication side effect
- Fatigue due to underlying medical conditions
- Dehydration
- Cardiac arrhythmia
- Anemia
- Electrolyte imbalance
SUMMARY OF ENCOUNTER
The patient was seen in the emergency department due to sudden difficulty swallowing and feeling exhausted. Given her medical history of previous stroke and being on apixaban, a thorough assessment was conducted to rule out a transient ischemic
attack or stroke. A chest X-ray and basic laboratory evaluations were ordered to assess for aspiration pneumonia and other potential causes of her symptoms.
DIAGNOSIS
Possible Transient Ischemic Attack (G45.9), to rule out aspiration pneumonia (J69.0).
My independent EKG interpretation is:
- Rhythm: Atrial fibrillation
- Heart Rate: 97 beats per minute
- [place]: Normal
- ST Segment: No elevation
- Intervals: Within normal limits
06/19/25 - 15:01
Reviewed patients hyperglycemia; daughter reports this level is typical for her baseline. Recent chest X-ray clear. Patient reports feeling better, eating and drinking well without issues. No current complaints of UTI symptoms. Discussed need for
urinalysis to complete workup, but patient and daughter declined, preferring discharge. Both patient and daughter are comfortable with this decision.
SUMMARY OF ENCOUNTER
The patient, an 80-year-old female with a history of stroke, presented to the emergency department following a resolved choking episode. She reported a sensation of exhaustion and transient difficulty swallowing. The patient was uncertain if she was
eating at the time of the episode. A discussion was held regarding the possibility of a transient ischemic attack (TIA), but the patient is currently medically optimized, and her symptoms have resolved. Blood work did not reveal significant
abnormalities that could explain her symptoms, and she was eating and drinking without difficulty, indicating no esophageal impaction. There were no urinary symptoms. The patient and her family felt comfortable with her discharge.
DISPOSITION
Discharge.
PLAN
- Perform a chest X-ray to check for any signs of aspiration.
- Complete basic laboratory tests to evaluate overall health status.
- Follow up with primary care for further workup and evaluation.
INDEPENDENT REVIEW OF LABS AND INTERPRETATION OF TESTS
My independent review of the blood work showed no significant abnormality to explain her symptoms.
PATIENT EDUCATION AND COUNSELING
Discussed with the patient and family the possibility of a TIA and reassured them regarding the resolution of symptoms. Emphasized the importance of follow-up with primary care for further evaluation.
FOLLOW-UP INSTRUCTIONS
Please follow up with your primary care provider to discuss further workup and evaluation.
MEDICAL DECISION MAKING
- Number and Complexity of Problems Addressed: Chronic conditions affecting care include a history of stroke. Differential diagnoses include transient ischemic attack, acute stroke, aspiration pneumonia, seizure, medication side effect, fatigue due
to underlying conditions, dehydration, cardiac arrhythmia, anemia, and electrolyte imbalance.
- Data:
Category 1
- My independent EKG interpretation is atrial fibrillation with a heart rate of 97 beats per minute, normal axis, no ST segment elevation with intervals within normal limits.
- My independent interpretation of the chest X-ray was clear.
Category 2
- Input from the patients family, who discussed her current health status and medical history.
- Risk: Consideration of Admission/Observation: Escalation of care including admission/observation was considered given the complexity and risk of the patients presenting complaint, exam findings, and underlying comorbidities. However, ultimately, I
feel the patient is safe for outpatient management with close follow-up. Reasoning: Work-up reassuring, does not reveal any acute life/organ threatening processes, patients symptoms well controlled upon reevaluation, reexamination is reassuring,
vitals are stable, patient agreeable with discharge, reliable for follow-up.
DIAGNOSIS
- Possible Transient Ischemic Attack (G45.9).
- To rule out aspiration pneumonia (J69.0).
*Pulse Oximetry
SaO2: 98
Oxygen Mode of Delivery: Room air
Patient hypoxic: no
*Critical Care Note
Total Time (30-74mins, 75-104mins- exclusive of procedures): Not Applicable
ED Attending Note
-
Portions of this chart may have been created with voice recognition software.� Occasional wrong word or��sound alike� substitutions may have occurred due to the inherent limitations of voice recognition software.
Discharge Plan
Departure
Patient Disposition: Home (Routine Discharge)
Date of Disposition: 06/19/25
Time of Disposition: 15:11
Patient with high blood pressure during this ER visit?: No
Discharge Problem:
Dysphagia
Instructions: Dysphagia
Prescriptions:
No Action
atorvastatin 20 MG tablet
20 mg PO HS
pantoprazole 40 MG tablet,delayed release (DR/EC)
40 mg PO DAILY
Januvia 100 MG tablet
100 mg PO DAILY
methenamine hippurate 1 GRAM tablet
1 g PO BID
ferrous sulfate [iron] 325 MG tablet
325 mg PO DAILY
lisinopril 10 MG tablet
10 mg PO BID
metoprolol succinate 100 mg tablet extended release 24 hr
100 mg PO HS
calcium polycarbophil [Fiber (calcium polycarbophil)] 625 mg Tablet
625 mg PO DAILY
memantine 10 mg Tablet
10 mg PO BID
nystatin 100,000 unit/gram powder
1 applic TOPICAL BID
loperamide 2 mg Tablet
2 mg PO DAILYPRN PRN (Reason: diarrhea)
Rx Instructions:
take 4mg after first loose stool then 2mg aftr each subsequent episode
glimepiride 2 mg Tablet
2 mg PO DAILY
Eliquis 5 MG tablet
5 mg PO BID Qty: 60 0RF
cyanocobalamin (vitamin B-12) 100 mcg Tablet
100 mcg PO DAILY
Benadryl 2 % Gel
1 applic TOPICAL Q4HPRN PRN (Reason: itching )
famotidine [Pepcid] 40 mg Tablet
40 mg PO BID
potassium chloride 10 mEq Tablet Extended Release
10 meq PO DAILY
sertraline 25 mg Tablet
25 mg PO DAILY
alum-mag hydroxide-simeth [Antacid Anti-Gas] 200-200-20 mg/5 mL Suspension
30 ml PO BIDPRN PRN (Reason: gas pains)
metformin 500 mg Tablet Extended Release 24 Hr
500 mg PO QPM
loratadine [Claritin] 10 mg Tablet
10 mg PO DAILY
Saccharomyces boulardii [Florastor] 250 mg Capsule
250 mg PO BID
acetaminophen 325 mg tablet
650 mg PO Q4HPRN PRN (Reason: mild pain)
tamsulosin 0.4 mg capsule
0.4 mg PO DAILY
Referrals:
Benjamín Barry MD [Family Provider, Internal Medicine]
Activity Restrictions/Additional Instructions:
Please return for any worsening symptoms.
You may return at any time if you have further concerns.
Please follow up with your doctor at the first available appointment, preferably this week.
Thank you for choosing [facility].
Interventions
Interventions:
*Risk Screen - Suicide Last Done: 06/19/25 13:36
*General Assessment Last Done: 06/19/25 13:33
*Neglect/Abuse Screening Last Done: 06/19/25 13:36
*ED- Fall Risk Assessment Last Done: 06/19/25 13:33
*ED COVID-19 Vaccine History Last Done: 06/19/25 13:33
*ED Influenza Vaccine History Last Done: 06/19/25 13:33
*Nursing Disposition Last Done: 06/19/25 16:17
ED- Cardiac Assessment Last Done: 06/19/25 13:39
ED- Neurological Assessment Last Done: 06/19/25 13:39
Discharge Date and Time
Discharge Date/Time: 06/19/25 16:47
Print Language: BOLIVIAN
[2025-06-19 13:57] LABS: Hematocrit 34.4 % (37.0-47.0); Hemoglobin 11.4 g/dL (12.0-16.0); Mean Corp Hgb Conc. 33.1 g/dL (33.0-37.0); Mean Corpuscular Volume 86.0 fL (81.0-99.0); Nucleated Red Blood Cells % 0 %; Platelet Count 204 10^3/uL (130-400); Red Cell Dist. Width 14.5 % (11.5-14.5)
[2025-06-19 14:04] VITALS: BP 99/37
--- NOTE | 2025-06-19 14:04 | EDRN ---
Went in to do ECG.. Pt eating lunch. DR Paredes says ' okay to wait on that'
[2025-06-19 14:06] LABS: ALT (SGPT) 14 U/L (0-35); AST (SGOT) 19 U/L (14-36); Albumin 4.1 g/dl (3.5-5.0); Alkaline Phosphatase 106 U/L (38-126); Blood Urea Nitrogen 32 mg/dl (7-17); Calcium 8.4 mg/dl (8.4-10.2); Carbon Dioxide 24 mmol/L (22-30); Chloride 96 mmol/L (98-107); Glucose 279 mg/dl (70-99); Potassium 4.6 mmol/L (3.5-5.1); Sodium 129 mmol/L (135-145); Total Protein 7.4 g/dl (6.3-8.2); eGFR 34.79
[2025-06-19 14:18] LABS: Troponin I < 0.012 ng/ml
[2025-06-19 15:01] VITALS: BP 126/62
[2025-06-19 15:03] VITALS: BP 126/62
[2025-06-19 16:42] VITALS: BP 139/70
== END 2025-06-19 16:47 | disposition home or self-care (01) ==
LOC: EMR 13:27
PROVIDERS: EMERGENCY PHYSICIAN Student in an Organized Health Care Education/Training Program; FAMILY PHYSICIAN Internal Medicine Geriatric Medicine
DX: R13.10 Dysphagia, unspecified (principal); E11.65 Type 2 diabetes mellitus with hyperglycemia; I48.91 Unspecified atrial fibrillation; I10 Essential (primary) hypertension; E78.00 Pure hypercholesterolemia, unspecified; D50.9 Iron deficiency anemia, unspecified; F03.90 Unspecified dementia, unspecified severity, without behavioral disturbance, psychotic disturbance, mood disturbance, and anxiety; G47.30 Sleep apnea, unspecified; F41.9 Anxiety disorder, unspecified; F32.A Depression, unspecified; Z79.01 Long term (current) use of anticoagulants; Z79.84 Long term (current) use of oral hypoglycemic drugs; Z86.73 Personal history of transient ischemic attack (TIA), and cerebral infarction without residual deficits; Z95.0 Presence of cardiac pacemaker; Z87.891 Personal history of nicotine dependence; Z82.49 Family history of ischemic heart disease and other diseases of the circulatory system
CPT/HCPCS: 99284; 71046; 80053; 84484; 85025; 93005